=== PATIENT | female | born 1955 | race Caucasian/White ===

== ENCOUNTER 2025-03-21 09:11 | Outpatient (AMB) | payer MEDICARE, SELFPAY ==
--- OUTSIDE RECORDS SUMMARY | 2025-03-21 09:14 | XMS_ITS | Clinical Summary ---
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 Active losartan-hydroCH LOROthiazide (HYZAAR) 100-25 mg per tablet Take 1 tablet by mouth 1 (one) time each day. Active Surgical History Surgery Date Site/Laterality Comments COLONOSCOPY HYSTERECTOMY TUBAL LIGATION APPENDECTOMY Medical History Medical History Date Comments Hyperlipidemia Anemia Neuropathy Herpes Social History Tobacco Use Types Packs/Day Years Used Date Smoking Tobacco: Never Smokeless Tobacco: Never Tobacco Cessation:Counseling Given: Not Answered Alcohol Use Standard Drinks/Week Comments Yes 0 (1 standard drink = 0.6 oz pur e alcohol) Interpersonal Safety Answer Date Record ed Physical Abuse Unrecognized value 04/10/2024 Verbal Abuse Unrecognized value 04/10/2024 Comments Unknown Sex and Gender Information Value Date Recorded Sex Assigned at Female 04/07/2024 5:11 PM EST Legal Sex Female 5:52 AM EST Gender Identity Female 04/07/2024 5:11 PM EST Sexual Orientation Straight 04/07/2024 5: 11 PM EST Last Filed Vital Signs Vital Sign Reading Time Taken Comments Blood Pressure 128/75 04/10/2024 11:17 AM EST Pulse 67 04/10/2024 11:17 AM EST Temperature 36.2 C (97.2 F) 04/10/2024 10:57 AM EST Respiratory Rate 17 04/10/2024 11:17 AM EST Oxygen Saturation 97% 04/10/2024 11:17 AM EST Inhaled Oxygen Concentration - - Weight 79.4 kg (175 lb) 03/31/2024 1:00 PM EST Height 167.6 cm (5' 6 ) 03/31/2024 1:00 PM EST Body Mass Index 28.25 03/31/2024 1:00 PM EST Plan of Treatment Health Maintenance Due Date Last Done Comments Zoster Vaccines (2 of 3) 03/29/2015 02/01/2015 Breast Cancer Screening 09/15/2020 09/15/2018, 09/09 Pneumococcal Vaccine: 50+ Years (2 of 2 - PCV20 or PCV21) 02/19/2021 02/20/2020 Cholesterol Screening (Lipid Panel) 01/12/2024 Hepatitis C Screening 01/12/2024 Medicare Annual Wellness Visit 01/12/2024 Osteoporosis Screening (Bone Density Screening) 01/12/2024 Social Influencers of Health Screening 01/12/2024 Depression Screening 03/29/2024 Hypertension/CHF/CAD Annual BMP Blood Test 04/10/2024 COVID-19 Vaccine ( - season) 2024 Influenza Vaccine (#1) 2024 9, 02/01/2015, 12/21/2013, Additional history exists Falls Risk Assessment 04/10/2025 04/10/2024 RSV Immunization Adult Patients (1 - 1-dose 75+ series) 2029 DTaP,Tdap,and Td Vaccines (4 - Td or Tdap) 02/24/2032 02/23/2022, 05/09/2012, 01/20/2005 Colorectal Cancer Screening: Colonoscopy 04/10/2034 04/10/2024 HIB Vaccines Aged Out No longer eligi ble based on patient's age to complete this topic HPV Vaccines Aged Out No longer eligi ble based on patient's age to complete this topic Hepatitis A Vaccines Aged Out No long er eligible based on patient's age to complete this topic Hepatitis B Vaccines Aged Out No long er eligible based on patient's age to complete this topic IPV Vaccines Aged Out No longer eligi ble based on patient's age to complete this topic MMR Vaccines Aged Out No longer eligi ble based on patient's age to complete this topic Meningococcal ACWY Vaccine Aged Out N o longer eligible based on patient's age to complete this topic Meningococcal B Vaccine Aged Out No l onger eligible based on patient's age to complete this topic RSV Immunization Patients Under 20 months Aged Out No longer eligible based on patient's age to complete this topic Varicella Vaccines Aged Out No longer eligible based on patient's age to complete this topic Procedures Procedure Name Priority Date/Time Associated Diagnosis Comments COLONOSCOPY Routine 04/10/2024 10:56 AM EST Hx of colonic polyps Family history of polyps in the colon FH: colon cancer [facility] SCREENING DIGITAL Routine 09/15/2018 9:45 AM EDT Encounter for screening mammogram for malignant neoplasm of breast from Last 3 Months or Most Recently Relevant to Health Maintenance Results * COLONOSCOPY Anesthesia - MAC; SP ENDOSCOPY (04/10/2024 10:56 AM EST) Anatomical Region Laterality Modality Endoscopy 04/10/2024 10:3 0 AM EST Impressions 04/10/2024 10:59 AM EST - Hemorrhoids found on perianal exam. - The examined portion of the ileum was normal. - Diverticulosis in the sigmoid colon. - Post-polypectomy scar in the rectum. - Internal hemorrhoids. Recommendation: - Await pathology results. - Repeat colonoscopy for surveillance based on pathology results. Narrative 04/10/2024 10:[address] [facility] GI Patient Name: Kay Spencer Procedure Date: 04/10/2024 10:30 AM Date of : 1955 Age: 68 Gender: Female Note Status: Finalized Attending MD: Misty Stanley MD, Procedure Date No Time: 04/10/2024 Procedure: Colonoscopy Indications: High risk colon cancer surveillance: Personal history of adenoma (10 mm or greater in size) Providers: Misty Stanley MD Referring MD: Brian Martínez MD Medicines: Propofol per Anesthesia Complications: No immediate complications. Estimated Blood Loss: Estimated blood loss: none. Procedure: Pre-Anesthesia Assessment: - ASA Grade Assessment: II - A patient with mild systemic disease. After I obtained informed consent, the scope was passed under direct vision. Throughout the procedure, the patient's blood pressure, pulse, and oxygen saturations were monitored continuously.The Colonoscope was introduced through the anus and advanced to the terminal ileum. The colonoscopy was performed without difficulty. The patient tolerated the procedure well. The quality of the bowel preparation was excellent. Findings: Hemorrhoids were found on perianal exam. The terminal ileum appeared normal. Multiple small-mouthed diverticula were found in the sigmoid colon. A medium post polypectomy scar was found in the rectum. There was residual polyp tissue. The polyp was removed with a hot snare. Resection and retrieval were complete. Internal hemorrhoids were found during retroflexion. The hemorrhoids were Grade I (internal hemorrhoids that do not prolapse). Procedure Code(s): --- Professional --- 55376, Colonoscopy, flexible; with removal of tumor(s), polyp(s), or other lesion(s) by snare technique Diagnosis Code(s): --- Professional --- Z86.010, Personal history of colonic polyps Z98.890, Other specified postprocedural states CPT copyright 2021 [employer]. All rights reserved. The codes documented in this report are preliminary and upon system consultant review may be revised to meet current compliance requirements. Misty Stanley MD 04/10/2024 10:59:00 AM This report has been signed electronically.Misty Stanley MD Number of Addenda: 0 Note Initiated On: 04/10/2024 10:30 AM Scope In: Scope Out: Endoscopy Department at [facility] - [address] [place] [id number] Procedure Note Misty Stanley MD - 04/10/2024 [facility] GI Patient Name: Kay Spencer Procedure Date: 04/10/2024 10:30 AM Date of : 1955 Age: 68 Gender: Female Note Status: Finalized Attending MD: Misty Stanley MD, Procedure Date No Time: 04/10/2024 Procedure: Colonoscopy Indications: High risk colon cancer surveillance: Personalhistory of adenoma (10 mm or greater in size) Providers: Misty Stanley MD Referring MD: Brian Martínez MD Medicines: Propofol per Anesthesia Complications: No immediate complications. Estimated Blood Loss: Estimated blood loss: none. Procedure: Pre-Anesthesia Assessment: - ASA Grade Assessment: II - A patient with mild systemic disease. After I obtained informed consent, the scope was passed under direct vision. Throughout theprocedure, the patient's blood pressure, pulse, and oxygen saturations were monitored continuously.The Colonoscope was introduced through the anus and advanced to the terminal ileum. The colonoscopy was performed without difficulty. The patient tolerated the procedure well. The quality of the bowel preparation was excellent. Findings: Hemorrhoids were found on perianal exam. The terminal ileum appeared normal. Multiple small-mouthed diverticula were found inthe sigmoid colon. A medium post polypectomy scar was found in the rectum. There was residual polyp tissue. The polypwas removed with a hot snare. Resection and retrievalwere complete. Internal hemorrhoids were found duringretroflexion. The hemorrhoids were Grade I (internal hemorrhoids that do not prolapse). Procedure Code(s): --- Professional --- 30373, Colonoscopy, flexible; with removal of tumor(s), polyp(s), or other lesion(s) by snare technique Diagnosis Code(s): --- Professional --- Z86.010, Personal history of colonic polyps Z98.890, Other specified postprocedural states CPT copyright 2020 [employer]. All rights reserved. The codes documented in this report are preliminary and upon system consultant reviewmay be revised to meet current compliance requirements. Misty Stanley MD 04/10/2024 10:59:00 AM This report has been signed electronically.Misty Stanley MD Number of Addenda: 0 Note Initiated On: 04/10/2024 10:30 AM Scope In: Scope Out: Endoscopy Department at [facility] - [address] [place] [id number] IMPRESSION: - Hemorrhoids found on perianal exam. - The examined portion of the ileum was normal. - Diverticulosis in the sigmoid colon. - Post-polypectomy scar in the rectum. - Internal hemorrhoids. Recommendation: - Await pathology results. - Repeat colonoscopy for surveillance based on pathology results. us Misty Stanley MD GI~PROCEDURE ORDERABLES Final Result * [facility] SCREENING DIGITAL (09/15/2018 9:45 AM EDT) Anatomical Region Laterality Modality Mammography 09/15/2018 8:17 AM EDT Narrative 09/15/2018 9:45 AM EDT [facility] Diagnostic Imaging Department [address] [place], [place] [id number] Patient: TJKAY /Age/Sex: 1955 - 63 - F Unit#: [id number] Location/Status: [facility] CLI Mnemonic/Ordering Site: [facility] Ordering Physician: BRIAN MARTÍNEZ MD [facility] Screening Digital - 09/15/18 - 0835 INDICATION: SCREENING COMPARISON: [facility] mammograms dating back to 09/09/2017 and additional outside exams of 12/04/2015, 11/19/2014 and 11/16/2013 TECHNIQUE: CC and MLO views of the breasts were obtained, using full field digital mammography with 3D tomosynthesis views in the MLO projection. Computer aided detection with the [employer] 7.2-H was employed. FINDINGS: The breasts contain heterogeneously dense tissues, which may lower sensitivity of mammography in this patient. No suspicious masses, suspicious microcalcifications, or areas of architectural distortion are identified. Benign-appearing breast calcifications are present bilaterally. There are no secondary signs of breast malignancy. Compared to the prior exam, no adverse interval change. IMPRESSION: No specific mammographic evidence of breast malignancy. Lack of an imaging correlate should not deter or delay biopsy of a clinically significant palpable finding. BI-RADS - Category 2 - Benign finding 3342F, 7025F Annual screening mammography is recommended. Patient entered into a reminder system with a target date for the next mammogram. [id number] / [id number]) , [id number] Dictating Physician: ZEINAB FARIA MD Electronically Signed by: ZEINAB FARIA MD Dic Date/Time: 09/15/1838 Sign date/Time: 09/15/1845 Procedure Note Zeinab Faria - 03/17/2022 [facility] Diagnostic Imaging Department [address] [place] [address] Patient: TJKAY D.O.B./Age/Sex: 1955 - 63 - F Unit#: [id number] Location/Status: [facility] CLI Mnemonic/Ordering Site: [facility] Ordering Physician: BRIAN MARTÍNEZ MD [facility] Screening Digital - 09/15/1835 INDICATION: SCREENING COMPARISON: [facility] mammograms dating back to 09/09/2017and additional outside exams of 12/04/2015, 11/19/2014 and 11/16/2013 TECHNIQUE: CC and MLO views of the breasts were obtained, using full field digital mammography with 3D tomosynthesis views in the MLO projection. Computer aided detection with the [employer] 7.2-H was employed. FINDINGS: The breasts contain heterogeneously dense tissues, which may lowersensitivity of mammography in this patient. No suspicious masses, suspicious microcalcifications, or areas ofarchitectural distortion are identified. Benign-appearing breast calcifications arepresent bilaterally. There are no secondary signs of breast malignancy. Comparedto the prior exam, no adverse interval change. IMPRESSION: No specific mammographic evidence of breast malignancy. Lack of an imaging correlate should not deter or delay biopsy of aclinically significant palpable finding. BI-RADS - Category 2 - Benign finding 3342F, 7025F Annual screening mammography is recommended. Patient entered into a reminder system with a target date for the next mammogram. [id number]) , [id number] Dictating Physician: ZEINAB FARIA MD Electronically Signed by: ZEINAB FARIA MD Dic Date/Time: 09/15/1838 Sign date/Time: 09/15/1845 us Brian Martínez MD IMG BI PROCEDURES Final Res ult from Last 3 Months or Most Recently Relevant to Health Maintenance Insurance [employer] - [place] MEDIC[place] ADVANTAGE Care Teams Bottle Dealer Relationship Specialty Start Date End Date Brian Martínez MD PCP - General Internal Medicine 04/07/24
--- OUTSIDE RECORDS SUMMARY | 2025-03-21 09:14 | XMS_ITS | Continuity of Care Document ---
Author Organization [facility], Main Office Address [address] [place] [address] Care Team Providers Care Pleating Supervisor Name Role Phone BRIAN MARTÍNEZ Primary Care Provider SEPIDEH SANDERS Dispensary Clerk MUSA SCHNEIDER Political Science Research Assistant DANIA GAUTHIER Referring Provider [phone] VICKI FUNG Referring Provider Assessment No assessment recorded. Plan of Treatment Reminders Order Date Submit Date Provider Last Modified By Organization Details Last Modified Time Details Appointments [id number] 2025 01:45P M Brian rachel MD Not available Not available Not available Lab None recorded. Referral pain managemen t referral - Low back pain since August 2024. Evaluate for possible cortisone injection . 2024 025 GHULAM Hobbs MD, [address], [place], [address], 03/01/2025 09:50:35 Procedures None recorded. Surgeries None recorded. Imaging None recorded. Medication Orders tramadol 50 mg tablet 2024 025 [id number], [address] [place], [address], 03/16/2025 05:01:59 Patient TargetsNo targets recorded. Patient Instructions Encounter Date Encounter Id Patient Instructions Last Modified By Organization Details Last Modified Time 02/27/2025 [id number] back care and preventing injuries: care instructions noah Not available 02/27/2025 16:18:53 getting back to normal after low back pain: care instructions noah Not available 02/27/2025 16:18:53 learning about relief for back pain noah Not available 02/27/2025 16:18:53 Reason for Referral Pain Management Referral for Low back pain Low back pain since August 2024. Evaluate for possible cortisone injection. Referring Physician: Brian Martínez, Family Medicine, Encounter Date: 02/27/2025 Problems Name Problem SNOMED Code Status Onset Date Resolution Date Notes Provider Name and Address Organization Details Recorded Time Pain of joint 21729538 Active hands Bernadette yeager [facility] 1 11:52:17 Influenz a-like illness 08576936 Completed 05/16/2014 Kristy Farooq PA-C [address], [place], [address] , [facility] 6 16:15:36 Venous varices 573602293 Active Bernadette yeager [facility] 1 11:52:17 Bhatti's metatars algia 18285464 Active surgery May [address] [facility] 1 11:52:17 Thyroid stimulat ing hormone level above referenc e range 050440760 Completed 05/22/2014 Kristy Farooq PA-C [address], [place], [address] , [facility] 6 16:15:36 Subclini malinda hypothyr oidism 50218878 Active Bernadette yeager 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 has been stable. Bernadette yeager [facility] 1 11:52:17 Acute sinusiti s 41040104 [facility] 09[facility] Upper respirat ory infectio n 66386695 Completed 01/10/[address] [facility] 8 09:32:59 Left lower quadrant pain 287558134 Completed 01/10/[address] [facility] 8 09:32:49 Divertic ulitis 390452977 Active Bernadette Willams shobha, [facility] 1 11:52:17 Injury of foot 465946984 Completed 01/10/[address] [facility] 8 09:32:45 Hyperten sive disorder 77078814 Completed 08/12/2020 Removal Reason: Vicenta Martínez MD [address], [place], [address] , [facility] 1 13:13:16 Peripher al venous insuffic iency 06305481 Active Bernadette Willams shobha, [facility] 1 11:52:17 Depressi ve disorder 98548147 Completed 08/12/2020 Removal Reason: Vicenta Martínez MD [address], [place], [address] , [facility] 1 13:13:38 Mixed anxiety and depressi ve disorder 332876710 Active Bernadette Willams shobha, [facility] 1 11:52:17 Hypercho lesterol emia 69812564 Completed 08/12/2020 Removal Reason: Vicenta Martínez MD [address], [place], [address] , [facility] 1 13:13:03 Anemia 926925505 Active Bernadette Willams shobha, [facility] 1 11:52:17 Single major depressi ve episode Active Bernadette Willams null, [facility] 1 11:52:17 Essentia l hyperten cecilia 44587833 Active Bernadette Willams null, [facility] 1 11:52:17 Pure hypercho lesterol emia 117320502 Completed 07/09/2016 Brian Martínez MD [address], [place], [address] , [facility] 7 11:02:54 Patient status finding 681296040 Completed 12/21/2013 Kristy Farooq PA-C [address], [place], [address] , [facility] 6 16:15:36 Otalgia 34310956 Active Bernadette Willams null, 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 1 11:52:17 Herpes simplex 15494100 Active in ear Bernadette Willams null, [facility] 1 11:52:17 Acute maxillar y sinusiti s 03891769 Completed 200711/02/2013 RESOLVED DATE: 07/13/19 08; IMPRESSI ON: PT C/O GI DISTRESS WITH TAKING AUGMENTI N WILL D/C AND CHANGE LAST WEEK TO AVELOX 400MG QD; RECORDED 07/13/19 08 8:07AM BY BRIAN RODRIGUEZ MD, ANNOTATI ON/ADDKULDIP Farooq PA-C [address], [place], [address] , [facility] 6 16:15:36 General examinat ion of patient Completed 200711/02/2013 RECORDED 07/13/19 08 8:08AM BY BRIAN RODRIGUEZ MD, ANNOTATI ON/ADDEN EMMA Farooq PA-C [address], [place], [address] , [facility] 6 16:15:36 Acute maxillar y sinusiti s 96264143 Completed 200711/03/2013 RESOLVED DATE: 07/13/19 08; IMPRESSI ON: PT C/O GI DISTRESS WITH TAKING AUGMENTI N WILL D/C AND CHANGE LAST WEEK TO AVELOX 400MG QD; RECORDED 07/13/19 08 8:07AM BY BRIAN RODRIGUEZ MD, ANNOTATI ON/ADDEN EMMA SOFIA-C [address], [place], [address] , [facility] 6 16:15:36 General examinat ion of patient Completed 200711/03/2013 RECORDED 07/13/19 08 8:08AM BY BRIAN RODRIGUEZ MD, ANNOTATI ON/EKATERINAEN EMMA SOFIA-C [address], [place], [address] , [facility] 6 16:15:36 Acute maxillar y sinusiti s 45803377 Completed 200710/10/2013 RESOLVED DATE: 07/13/19 08; IMPRESSI ON: PT C/O GI DISTRESS WITH TAKING AUGMENTI N WILL D/C AND CHANGE LAST WEEK TO AVELOX 400MG QD; RECORDED 07/13/19 08 8:07AM BY BRIAN RODRIGUEZ MD, ANNOTATI ON/TRISH SOFIA-C [address], [place], [address] , [facility] 6 16:15:36 General examinat ion of patient Completed 200710/10/2013 RECORDED 07/13/19 08 8:08AM BY BRIAN RODRIGUEZ MD, ANNOTATI ON/TRISH SOFIA-C [address], [place], [address] , [facility] 6 16:15:36 Degenera tion of interver tebral disc Completed 200711/02/2013 RECORDED 01/12/20 08 11:55AM BY SHILA WILSON ON/ADDEN DUM Kristy Farooq PA-C [address], [place], [address] , [facility] 6 16:15:37 Fracture of sternum 73654392 Completed 200711/02/2013 RECORDED 01/12/20 08 11:55AM BY CASS WILSONATI ON/ADDEN DUM Kristy Farooq PA-C [address], [place], [address] , [facility] 6 16:15:36 Closed fracture 071311831 Completed 200711/02/2013 RECORDED 01/12/20 08 11:55AM BY SHILA WILSON ON/ADDEN DUM Kristy Farooq PA-C [address], [place], [address] , [facility] 6 16:15:36 Palpitat ions 29368594 Completed 200711/02/2013 RECORDED 01/12/20 08 11:55AM BY SHILA WILSON ON/ADDEN DUM Kristy Farooq PA-C [address], [place], [address] , [facility] 6 16:15:36 Degenera tion of interver tebral disc Completed 200711/03/2013 RECORDED 01/12/20 08 11:55AM BY SHILA WILSON ON/ADDEN DUM Kristy Farooq PA-C [address], [place], [address] , [facility] 6 16:15:37 Fracture of sternum 26931971 Completed 200711/03/2013 RECORDED 01/12/20 08 11:55AM BY SHILA WILSON ON/ADDEN DUM Kristy Farooq PA-C [address], [place], [address] , [facility] 6 16:15:36 Closed fracture 901257519 Completed 200711/03/2013 RECORDED 01/12/20 08 11:55AM BY SHILA WILSON ON/ADDEN DUM Kristy Oseas PA-C [address], [place], [address] , [facility] 6 16:15:36 Palpitat ions 96964902 Completed 200711/03/2013 RECORDED 01/12/20 08 11:55AM BY SHILA WILSON ON/ADDEN DUM Kristy Oseas SOFIA-C [address], [place], [address] , [facility] 6 16:15:36 Degenera tion of interver tebral disc Completed 200710/10/2013 RECORDED 01/12/20 08 11:55AM BY SHILA WILSON ON/ADDEN DUM Kristy Oseas PA-C [address], [place], [address] , [facility] 6 16:15:37 Fracture of sternum 39730919 Completed 200710/10/2013 RECORDED 01/12/20 08 11:55AM BY SHILA WILSON ON/ADDEN DUM Kristy Oseas SOFIA-C [address], [place], [address] , [facility] 6 16:15:36 Closed fracture 297137776 Completed 200710/10/2013 RECORDED 01/12/20 08 11:55AM BY SHILA WILSON ON/ADDEN DUM Kristy Oseas PA-C [address], [place], [address] , [facility] 6 16:15:36 Palpitat ions 92638913 Completed 200710/10/2013 RECORDED 01/12/20 08 11:55AM BY IESHA DAWN, ANNOTATI ON/[facility] [address], [place], [address] , [facility] 6 16:15:36 Acute bronchit is 24197098 Completed 200811/02/2013 IMPRESSI ON: COUGH WITH GREEN SPUTUM, NO SOB, NL LUNG EXAM, TREAT WITH ZPAK, PT TOLERATE D CODEINE RECENTLY THEREFOR E WOULD LIKE THE COUGH MED WITH CODEINE; RECORDED 12/18/19 09 11:28AM BY SHAKEEL VALLE MA, ANNOTATI ON/[facility] Kristypura Delucaden CA-C [address] [address], [place], [address] , [facility] 6 16:15:36 Dysphagi a 15855622 Completed 200811/02/2013 IMPRESSI ON: SORE THROAT , NEG QUICK STREP; RECORDED 12/18/19 09 11:28AM BY SHAKEEL VALLE MA, ANNOTBERTHA ON/[facility] [address], [place], [address] , [facility] 6 16:15:36 Acute bronchit is 24818193 Completed 200811/03/2013 IMPRESSI ON: COUGH WITH GREEN SPUTUM, NO SOB, NL LUNG EXAM, TREAT WITH ZPAK, PT TOLERATE D CODEINE RECENTLY THEREFOR E WOULD LIKE THE COUGH MED WITH CODEINE; RECORDED 12/18/19 09 11:28AM BY SHAKEEL VALLE MA, ANNOTATI ON/[facility] [address], [place], [address] , [facility] 6 16:15:36 Dysphagi a 91944301 Completed 200811/03/2013 IMPRESSI ON: SORE THROAT , NEG QUICK STREP; RECORDED 12/18/19 09 11:28AM BY SHAKEEL VALLE MA, ANNOTATI ON/ADDEN DUM Kristy SOFIA-C [address], [place], [address] , [facility] 6 16:15:36 Acute bronchit is 95564003 Completed 200810/10/2013 IMPRESSI ON: COUGH WITH GREEN SPUTUM, NO SOB, NL LUNG EXAM, TREAT WITH ZPAK, PT TOLERATE D CODEINE RECENTLY THEREFOR E WOULD LIKE THE COUGH MED WITH CODEINE; RECORDED 12/18/19 09 11:28AM BY SHAKEEL VALLE MA, ANNOTATI ON/ADDEN DUM Kristy SOFIA-C [address], [place], [address] , [facility] 6 16:15:36 Dysphagi a 11687443 Completed 200810/10/2013 IMPRESSI ON: SORE THROAT , NEG QUICK STREP; RECORDED 12/18/19 09 11:28AM BY SHAKEEL VALLE MA, ANNOTATI ON/ADDEN DUM Kristy TURNERC [address], [place], [address] , [facility] 6 16:15:36 Acute sinusiti s 68730856 Completed 201111/02/2013 RECORDED 11/12/19 12 10:28AM BY OSWALDO PEREA MA, ANNOTATI ON/ADDEN DUM [facility] 8 09:32:35 Acute asthma 678529400 Completed 201111/02/2013 RECORDED 11/12/19 12 10:28AM BY OSWALDO PEREA MA, ANNOTATI ON/ADDEN DUM Kristykamaljit TURNERC [address], [place], [address] , [facility] 6 16:15:36 Screenin g for malignan t neoplasm of breast Completed 201111/02/2013 RECORDED 11/12/19 12 10:28AM BY OSWALDO PEREA MA, ANNOTATI ON/ADDEN DUM Kristy Farooq PA-C [address], [place], [address] , [facility] 6 16:15:36 Screenin g for malignan t neoplasm of cervix Completed 201111/02/2013 RECORDED 11/12/19 12 10:28AM BY OSWALDO PEREA MA, ANNOTATI ON/ADDEN DUM Kristy Farooq PA-C [address], [place], [address] , [facility] 6 16:15:36 Chest pain 40678356 Completed 201111/02/2013 RECORDED 11/12/19 12 10:31AM BY SHILA ANTHONY ON/ADDEN DUM Kristy Farooq PA-C [address], [place], [address] , [facility] 6 16:15:36 Conjunct ivitis 9626815 Completed 201111/02/2013 RECORDED 11/12/19 12 10:31AM BY SHILA ANTHONY ON/ADDEN DUM Kristy Farooq PA-C [address], [place], [address] , [facility] 6 16:15:36 Gastroes ophageal reflux disease 828173481 Completed 201111/02/2013 RECORDED 11/12/19 12 10:31AM BY SHILA ANTHONY ON/ADDEN DUM Kristy Farooq PA-C [address], [place], [address] , [facility] 6 16:15:36 Family history of malignan t neoplasm of ovary 016913620 Completed 201111/02/2013 RECORDED 11/12/19 12 10:31AM BY DEMOND SCHULTZK I, ANNOTATI ON/ADDEN DUM Kristy Farooq PA-C [address], [place], [address] , [facility] 6 16:15:36 Follow-u p encounte r Completed 201111/02/2013 RECORDED 11/12/19 12 10:31AM BY DEMOND PETERSON I, ANNOTATI ON/ADDEN DUM Kristy Farooq PA-C [address], [place], [address] , [facility] 6 16:15:36 Disorder of bone and articula r cartilag e 341006231 Completed 201111/02/2013 RECORDED 11/12/19 12 10:31AM BY DEMOND PETERSON I ANNOTATI ON/ADDEN DUM Kristy Farooq PA-C [address], [place], [address] , [facility] 6 16:15:36 Screenin g for malignan t neoplasm of colon Completed 201111/02/2013 RECORDED 11/12/19 12 10:31AM BY CASS ANTHONYATI ON/ADDEN DUM Kristy Farooq PA-C [address], [place], [address] , [facility] 6 16:15:37 Acute sinusiti s 91757235 Completed 201111/03/2013 RECORDED 11/12/19 12 10:28AM BY OSWALDO PEREA MA, ANNOTATI ON/ADDEN DUM Demond [facility] 8 09:32:35 Acute asthma 970348305 Completed 201111/03/2013 RECORDED 11/12/19 12 10:28AM BY OSWALDO PEREA MA, ANNOTATI ON/ADDEN DUM Kristy Farooq PA-C [address], [place], [address] , [facility] 6 16:15:36 Screenin g for malignan t neoplasm of breast Completed 201111/03/2013 RECORDED 11/12/19 12 10:28AM BY OSWALDO PEREA MA, ANNOTATI ON/ADDEN DUM Kristy Farooq PA-C [address], [place], [address] , [facility] 6 16:15:36 Screenin g for malignan t neoplasm of cervix Completed 201111/03/2013 RECORDED 11/12/19 12 10:28AM BY OSWALDO PEREA MA, ANNOTATI ON/ADDEN DUM Kristy Farooq PA-C [address], [place], [address] , [facility] 6 16:15:37 Chest pain 55539720 Completed 201111/03/2013 RECORDED 11/12/19 12 10:31AM BY SHILA ANTHONY ON/ADDEN DUM Kristy Farooq PA-C [address], [place], [address] , [facility] 6 16:15:36 Conjunct ivitis 6169032 Completed 201111/03/2013 RECORDED 11/12/19 12 10:31AM BY SHILA ANTHONY ON/ADDEN DUM Kristy Farooq PA-C [address], [place], [address] , [facility] 6 16:15:36 Gastroes ophageal reflux disease 675124417 Completed 201111/03/2013 RECORDED 11/12/19 12 10:31AM BY SHILA ANTHONY ON/ADDEN DUM Kristy Farooq PA-C [address], [place], [address] , [facility] 6 16:15:36 Family history of malignan t neoplasm of ovary 538195974 Completed 201111/03/2013 RECORDED 11/12/19 12 10:31AM BY CASS ANTHONYATI ON/ADDEN DUM Kristy Farooq PA-C [address], [place], [address] , [facility] 6 16:15:36 Follow-u p encounte r Completed 201111/03/2013 RECORDED 11/12/19 12 10:31AM BY CASS ANTHONYATI ON/ADDEN DUM Kristy Farooq PA-C [address], [place], [address] , [facility] 6 16:15:36 Disorder of bone and articula r cartilag e 971557644 Completed 201111/03/2013 RECORDED 11/12/19 12 10:31AM BY CASS ANTHONYATI ON/ADDEN DUM Kristy Farooq PA-C [address], [place], [address] , [facility] 6 16:15:36 Screenin g for malignan t neoplasm of colon Completed 201111/03/2013 RECORDED 11/12/19 12 10:31AM BY CASS ANTHONYATI ON/ADDEN DUM Kristy Farooq PA-C [address], [place], [address] , [facility] 6 16:15:37 Acute sinusiti s 01340873 Completed 201110/10/2013 RECORDED 11/12/19 12 10:28AM BY OSWALDO PEREA MA, ANNOTATI ON/ADDEN DUM Demond [facility] 8 09:32:35 Acute asthma 172502221 Completed 201110/10/2013 RECORDED 11/12/19 12 10:28AM BY OSWALDO PEREA MA, ANNOTATI ON/ADDEN DUM Kristy Farooq PA-C [address], [place], [address] , [facility] 6 16:15:36 Screenin g for malignan t neoplasm of breast Completed 201110/10/2013 RECORDED 11/12/19 12 10:28AM BY OSWALDO PEREA MA, ANNOTATI ON/ADDEN DUM Kristy Farooq PA-C [address], [place], [address] , [facility] 6 16:15:36 Screenin g for malignan t neoplasm of cervix Completed 201110/10/2013 RECORDED 11/12/19 12 10:28AM BY OSWALDO PEREA MA, ANNOTATI ON/ADDEN DUM Kristy Farooq PA-C [address], [place], [address] , [facility] 6 16:15:36 Chest pain 04159550 Completed 201110/10/2013 RECORDED 11/12/19 12 10:31AM BY SHILA ANTHONY ON/ADDEN DUM Kristy Farooq PA-C [address], [place], [address] , [facility] 6 16:15:36 Conjunct ivitis 9609895 Completed 201110/10/2013 RECORDED 11/12/19 12 10:31AM BY SHILA ANTHONY ON/ADDEN DUM Kristy Farooq PA-C [address], [place], [address] , [facility] 6 16:15:36 Gastroes ophageal reflux disease 555431302 Completed 201110/10/2013 RECORDED 11/12/19 12 10:31AM BY CASS ANTHONYATI ON/ADDEN DUM Kristy Farooq PA-C [address], [place], [address] , [facility] 6 16:15:36 Family history of malignan t neoplasm of ovary 378896038 Completed 201110/10/2013 RECORDED 11/12/19 12 10:31AM BY CASS ANTHONYATI ON/ADDEN DUM Kristy Farooq PA-C [address], [place], [address] , [facility] 6 16:15:36 Follow-u p encounte r Completed 201110/10/2013 RECORDED 11/12/19 12 10:28AM BY OSWALDO PEREA MA, ANNOTATI ON/ADDEN DUM Kristy [employer] PA-C [address], [place], [address] , [facility] 6 16:15:36 Essentia l hyperten cecilia 27716516 Completed 201110/10/2013 RECORDED 11/12/19 12 10:28AM BY OSWALDO PEREA MA, ANNOTATI ON/ADDEN DUM Kristy [employer] PA-C [address], [place], [address] , [facility] 6 16:15:36 Disorder of bone and articula r cartilag e 018582977 Completed 201110/10/2013 RECORDED 11/12/19 12 10:31AM BY SHILA ANTHONY ON/ADDEN DUM Kristy [employer] PA-C [address], [place], [address] , [facility] 6 16:15:36 Screenin g for malignan t neoplasm of colon Completed 201110/10/2013 RECORDED 11/12/19 12 10:31AM BY SHILA ANTHONY ON/ADDEN DUM Kristy [employer] PA-C [address], [place], [address] , [facility] 6 16:15:37 Influenz a vaccine needed [id number] 06 Completed 201211/02/2013 RECORDED 12/13/19 13 1:11PM BY DEMOND PETERSON I, OFFICE VISIT Kristy TURNERC [address], [place], [address] , [facility] 6 16:15:36 Administ ration of diphther ia and tetanus vaccine Completed 201211/02/2013 RECORDED 12/13/19 13 12:59PM BY DEMOND PEETRSON I, ANNOTATI ON/ADDEN DUM Kristy SOFIA-C [address], [place], [address] , [facility] 6 16:15:36 Influenz a vaccine needed [id number] 06 Completed 201211/03/2013 RECORDED 12/13/19 13 1:11PM BY DEMOND PETERSON I, OFFICE VISIT Kristy SOFIA-C [address], [place], [address] , [facility] 6 16:15:36 Administ ration of diphther ia and tetanus vaccine Completed 201211/03/2013 RECORDED 12/13/19 13 12:59PM BY CASS ANTHONYATI ON/ADDEN DUM Kristy SOFIA-C [address], [place], [address] , [facility] 6 16:15:36 Influenz a vaccine needed [id number] 06 Completed 201210/10/2013 RECORDED 12/13/19 13 1:11PM BY DEMOND PETERSON I, OFFICE VISIT Kristy TURNERC [address], [place], [address] , [facility] 6 16:15:36 Administ ration of diphther ia and tetanus vaccine Completed 201210/10/2013 RECORDED 12/13/19 13 12:59PM BY DEMOND PETERSON I, ANNOTATI ON/ADDEN DUM Kristy SOFIA-C [address], [place], [address] , [facility] 6 16:15:36 Pain in limb 30583113 Completed 201211/02/2013 RECORDED 01/21/20 13 9:39AM BY OSWALDO PEREA MA, ANNOTATI ON/ADDEN DUM Kristy Farooq PA-C [address], [place], [address] , [facility] 6 16:15:36 Adult health examinat ion Completed 201211/02/2013 RECORDED 01/21/20 13 9:39AM BY OSWALDO PEREA MA, ANNOTATI ON/ADDEN DUM Kristy Farooq PA-C [address], [place], [address] , [facility] 6 16:15:36 Pain in limb 01403825 Completed 201211/03/2013 RECORDED 01/21/20 13 9:39AM BY OSWALDO PEREA MA, ANNOTATI ON/ADDEN DUM Kristy Farooq PA-C [address], [place], [address] , [facility] 6 16:15:36 Adult health examinat ion Completed 201211/03/2013 RECORDED 01/21/20 13 9:39AM BY OSWALDO PEREA MA, ANNOTATI ON/ADDEN DUM Kristy Farooq PA-C [address], [place], [address] , [facility] 6 16:15:36 Pain in limb [id number] Completed 201210/10/2013 RECORDED 01/21/20 13 9:39AM BY OSWALDO PEREA MA, ANNOTATI ON/ADDEN DUM Kristy Farooq PA-C [address], [place], [address] , [facility] 6 16:15:36 Adult health examinat ion Completed 201210/10/2013 RECORDED 01/21/20 13 9:39AM BY OSWALDO PEREA MA, SHILA ON/TRISH Farooq PA-C [address], [place], [address] , [facility] 6 16:15:36 Foot pain [id number] Completed 201305/16/[address] Gilson Farooq PA-C [address], [place], [address] , [facility] 6 16:15:36 Herpes simplex [id number] Completed 201311/02/2013 IMPRESSI ON: SEE LAST 2 OV NOTES. 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 SURPRISI NG RESULT. SUSPECTE D HERPES ZOSTER. SHE HAS NO HX COLD SORES. SHE HAD PARIETAL HEAD PAIN, DIZZINES , HYPERACU SIS ASSOCIAT ED WITH THIS. MOST SXS IMPROVED . TO ID TO FIND OUT IF SHE SHOULD EXPECT RECURREN JOLIE IN THE SAME DISTRIBU TION; RECORDED 06/20/19 14 8:30AM BY SHILA ANTHONY ON/TRISH Farooq PA-C [address], [place], [address] , [facility] 6 16:15:36 Herpes zoster [id number] Completed 201311/02/2013 IMPRESSI ON: GABRIELA DURANT; STILL WITH EAR PAIN BUT IMPROVIN G AND NO HEARING LOSS. SHE WILL CALL IN 2 WEEKS IF THE EAR PAIN PERSISTS OR THERE IS ANY CHANGE IN HER HEARING OR BALANCE. ; RECORDED 06/20/19 14 8:30AM BY SHILA ANTHONY ON/TRISH Farooq PA-C [address], [place], [address] , [facility] 6 16:15:36 Herpes simplex [id number] Completed 201311/03/2013 IMPRESSI ON: SEE LAST 2 OV NOTES. 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 SURPRISI NG RESULT. SUSPECTE D HERPES ZOSTER. SHE HAS NO HX COLD SORES. SHE HAD PARIETAL HEAD PAIN, DIZZINES , HYPERACU SIS ASSOCIAT ED WITH THIS. MOST SXS IMPROVED . TO ID TO FIND OUT IF SHE SHOULD EXPECT RECURREN JOLIE IN THE SAME DISTRIBU TION; RECORDED 06/20/19 14 8:30AM BY SHILA ANTHONY ON/ADDKULDIP CARTER [employer]y [employer] [facility] [address], [place], [address] , [facility] 6 16:15:36 Herpes zoster [id number] Completed 201311/03/2013 IMPRESSI ON: OCHOA DURANT; STILL WITH EAR PAIN BUT IMPROVIN G AND NO HEARING LOSS. SHE WILL CALL IN 2 WEEKS IF THE EAR PAIN PERSISTS OR THERE IS ANY CHANGE IN HER HEARING OR BALANCE. ; RECORDED 06/20/19 14 8:30AM BY SHILA ANTHONY ON/ADDKULDIP [facility] Farooq CA-C [address], [place], [address] , [facility] 6 16:15:36 Herpes simplex [id number] Completed 201310/10/2013 IMPRESSI ON: SEE LAST 2 OV NOTES. 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 SURPRISI NG RESULT. SUSPECTE D HERPES ZOSTER. SHE HAS NO HX COLD SORES. SHE HAD PARIETAL HEAD PAIN, DIZZINES , HYPERACU SIS ASSOCIAT ED WITH THIS. MOST SXS IMPROVED . TO ID TO FIND OUT IF SHE SHOULD EXPECT RECURREN JOLIE IN THE SAME DISTRIBU TION; RECORDED 06/20/19 14 8:30AM BY SHILA ANTHONY ON/ADDKULDIP CARTER [employer] [address], [place], [address] , [facility] 6 16:15:36 Herpes zoster [id number] Completed 201310/10/2013 IMPRESSI ON: OCHOA DURANT; STILL WITH EAR PAIN BUT IMPROVIN G AND NO HEARING LOSS. SHE WILL CALL IN 2 WEEKS IF THE EAR PAIN PERSISTS OR THERE IS ANY CHANGE IN HER HEARING OR BALANCE. ; RECORDED 06/20/19 14 8:30AM BY SHILA ANTHONY ON/ADDKULDIP Farooq PA-C [address], [place], [address] , [facility] 6 16:15:36 Osteopen ia [id number] Active [address] Cindy Farooq PA-C [address], [place], [address] , [facility] 6 16:15:36 Blood in urine 67669382 Active 2015 Followed by urology Bernadette yeager, [facility] 1 11:52:17 Hyperlip idemia 69440460 Active 2016 Bernadette yeager, [facility] 1 11:52:17 Uterine prolapse 81618104 Active 2016 Brian Martínez MD [address], [place], [address] , [facility] 7 20:06:34 Vitamin D deficien cy 46027654 [facility] 11:[facility]17 Urinary incontin ence 172507481 Active [address] [facility] 1 11:52:17 Neuropat hy 225214254 Active 2018 LE; followed by neurolog yMartha yeager [facility] 1 11:52:17 Obesity 503988037 Active [address] [facility] 1 11:52:17 Pain in left knee Active 2019 Seen at [facility]; possible meniscus tear; getting an MRI.Tear on MRI. Getting another injectio n and if not helpful consider ing arthrosc opic surgery. Note from October 2022 document s good affect from injectio n which will be repeated . Brian Martínez MD [address], [place], [address] , [facility] 3 10:09:04 Hyperten cecilia monitori ng status 952531873 Active 2021 disenrol led Rose Antony yeager, 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 Seen by rheum and w/u in progress . Since symptoms have resolved may not be signific ant. 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 Extensiv e w/u r/o CVA and Guillian [place] Involvin g CN 6 and 5. Probable [place] Palsy with adjacent nerve involvem ent Brian Martínez MD [address], [place], [address] , [facility] 5 08:17:32 Problem Notes None recorded. Procedures Surgical History Date Name Laterality Status Provider Name and Address Organization Details Recorded Time 05/17/19 25 Most Recent Mammogram completed Brianda Perry [facility] 05/17/2024 11:58:51 05/17/19 25 Mammogram Screening completed Brianda Perry [facility] 05/17/2024 11:58:36 04/10/19 25 Date of Last Colonoscopy completed Brianda Perry [facility] 04/11/2024 13:30:00 04/10/19 25 Colonoscopy completed Ida Duncan [facility] 04/26/2024 09:46:00 05/26/19 24 Advanced Care Planning completed Brian Martínez MD [address], [place], [address], [facility] 05/26/2023 12:31:56 11/04/19 23 injection of knee completed Ida Duncan [facility] 11/09/2022 11:11:52 09/23/19 23 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 completed Ida Duncan [facility] 10/02/2022 10:36:27 02/14/20 20 Six-Item Cognitive Test completed Rosa M Alexandre MA [facility] 02/14/2020 13:55:14 08/03/19 18 Most Recent Bone Density completed Bernadette Willams [facility] 08/19/2017 15:09:48 08/03/19 18 Dxa bone density jarrod vrt fx completed Bernadette Willams [facility] 08/19/2017 15:09:43 07/01/19 18 Date of Last Pap Smear completed Gisele Otero [facility] 07/06/2017 16:37:05 10/16/19 17 Total hysterectomy completed Demond Patrick [facility] 01/07/2017 09:38:13 12/28/19 15 Stab phleb veins xtr 10-[address] [facility] 02/05/2015 13:46:22 11/29/19 15 Endovenous laser 1st vein completed Demond Patrick [facility] 11/30/2014 14:41:43 06/02/19 15 Other completed Brian Martínez MD [address], [address], [facility] 06/08/2014 14:25:40 Tubal Ligation completed Oswaldo Perea [facility] 05/16/2014 12:44:07 Orthopedic Surgery completed Brian Martínez MD [address], [address], [facility] 12/21/2013 09:45:22 Appendectomy completed Brian Martínez MD [address], [address], [facility] 12/21/2013 09:45:22 Hysterectomy completed Rosa M Alexandre MA [facility] 02/17/2021 14:26:01 Endometrial Ablation completed Yanna Desai MA [facility] 02/23/2022 09:58:31 Imaging Results None recorded. Procedure Notes None recorded. Medical Equipment None Reported. Allergies Allergen ID Allergen Name Allergen Category Reaction Reaction Severity Criticality Documentation Date Start Date Code Code System Note Provider Name and Address Organization Details Recorded Time 1400 codeine medicatio n rash Not available Not available 10/10/2013 2670 [facility] 2 09:58:29 34581 atorvasta tin medicatio n nausea severe Not available 06/20/2018 58162 RxNorm CINDY Redman, [facility] 2 09:58:29 17337 Product containin g angiotens in-conver ting enzyme inhibitor (product) medicatio n cough Not available low 11/24/2023 63200 009 SNOMED Brian rachel MD [address], [place], [address], [facility] 4 12:32:10 22759 amlodipin e medicatio n Not available Not available Not available 08/30/2024 81855 RxNorm low sodiu m and potas sium Brian rachel MD [address], [place], [address], [facility] 5 17:57:38 22830 Cynara preparati on food Not available Not available Not available 02/27/20252024 12385 0 RxNorm unrec ogniz ed react ion (text : GI Intol eranc e, code: 80109 5008) (from exter nal sourc e) Not Available keven - External Data Service - prod 5 11:22:59 87041 spinach extract food Not available Not available Not available 02/27/20252024 63384 76 RxNorm unrec ogniz ed react ion (text : GI Intol eranc e, code: 97843 5008) (from exter nal sourc e) Not Available keven - External Data Service - prod 11:22:59 97386 Substance with sulfonami de structure and antibacte rial mechanism of action (substanc e) medicatio n hives Not available high 02/27/20252024 49213 8003 SNOMED Not Available keven - External Data Service - prod 11:22:59 39391 kale extract food diarrhea Not available Not available 02/27/20252024 88256 96 RxNorm Not Available keven - External Data Service - prod 11:25:44 Medications Name Sig Start Date Stop Date Status Note LastModified by Organization Details LastModified Time celecoxib 200 mg capsule DAILY 10/05 completed RECORDED 10/16/19 07 11:05AM BY BRIAN RODRIGUEZ MD, MEDICATI ON AUTO-TIMOTHY CTIVATIO N; Not Available Not Available Not Available atorvasta tin 40 mg tablet Take 1 tablet every day by oral route. 09/21 completed Not Available Not Available Not Available butalbita l-acetami nophen-ca ffeine 50 mg-325 mg-40 mg capsule Take 1 capsule every 4 hours by oral route as needed. 09/21 completed Not Available Not Available Not Available acetamino phen 325 mg tablet PLEASE SEE ATTACHED FOR DETAILED DIRECTIO NS active Not Available Not Available No t Available lidocaine 4 % topical patch PLACE 2 PATCHES DAILY NEEDED active Not Available Not Available No t Available ciproflox acin 750 mg tablet Take 1 tablet every 12 hours by oral route for 10 days. active Not Available Not Available No t Available atenolol 100 mg tablet TAKE 1 TABLET BY MOUTH EVERY DAY 03/26 completed Not Available Not Available Not Available valacyclo vir 1 gram tablet active Not Available Not Available Not Available benazepri l 5 mg-hydroc hlorothia zide 6.25 mg tablet TAKE 1 TABLET BY MOUTH EVERY DAY 11/23 completed Not Available Not Available Not Available prednison e 20 mg tablet active Not Available Not Available Not Available lovastati n 40 mg tablet DAILY 04/09 completed RECORDED 04/09/19 12 5:33PM BY LIDA ADORNO, ANNOTATI ON/ADDEN DUM; Not Available Not Available Not Available sertralin e 100 mg tablet DAILY active Not Available Not Available Not Available benazepri l 20 mg-hydroc hlorothia zide 25 mg tablet TAKE 1 TABLET BY MOUTH EVERY DAY DIRECTED active Not Available Not Available No t Available moxifloxa lindsay 400 mg tablet QD 07/08 completed RECORDED 09/08/19 07 8:50AM BY JHON SIMS, MEDICATI ON AUTO-TIMOTHY CTIVATIO N; Not Available Not Available Not Available Zithromax Z-Sai 250 mg tablet QD 09/11 completed RECORDED 12/11/19 09 12:03PM BY IGOR Rachel MD, MEDICATI ON AUTO-TIMOTHY CTIVATIO N;2PO QD FOR 1 DAY, THEN 1 QD FOR 4 DAYS. Not Available Not Available Not Available naproxen 250 mg tablet Take 2 tablets as needed by oral route for 30 days. 08/11 completed Not Available Not Available Not Available gabapenti n 250 mg/5 mL oral solution TWICE DAILY PRN PAIN active Not Available Not Available No t Available metronida zole 500 mg tablet Take 1 tablet every 8 hours by oral route for 10 days. active Not Available Not Available No t Available amlodipin e 5 mg tablet TAKE 1 TABLET EVERY DAY BY MOUTH FOR 30 DAYS, FOR BLOOD PRESSURE . 06/01 completed increase d dose to 10 mg. Not Available Not Available Not Available simvastat in 80 mg tablet DAILY 09/30 completed RECORDED 10/01/19 11 8:31AM BY BRIAN RODRIGUEZ MD, ANNOTATI ON/ADDEN DUM; Not Available Not Available Not Available valacyclo vir 500 mg tablet DAILY active Not Available Not Available No t Available ciproflox acin 500 mg tablet TAKE 1 TABLET BY MOUTH EVERY 12 HOURS FOR 7 DAYS 05/26 completed Not Available Not Available Not Available sulfameth oxazole 800 mg-trimet hoprim 160 mg tablet TK 1 T PO Q 12 H FOR 7 DAYS 08/11 completed Not Available Not Available Not Available aspirin 81 mg tablet,de layed release Take 1 tablet every day by oral route. active Not Available Not Available No t Available tramadol 50 mg tablet Take 1 tablet every 6 hours by oral route for 10 days. 03/16 completed Not Available Not Available Not Available acyclovir 800 mg tablet active Not Available Not Available Not Available lidocaine -prilocai ne 2.5 %-2.5 % topical cream Apply by topical route for 30 days. 08/12 completed Not Available Not Available Not Available losartan 100 mg-hydroc hlorothia zide 25 mg tablet TAKE 1 TABLET BY MOUTH EVERY DAY FOR 90 DAYS FOR HIGH BLOOD PRESSURE 09/04 completed Not Available Not Available Not Available oxycodone -acetamin ophen 5 mg-325 mg tablet TAKE 1 TABLET BY MOUTH EVERY 4 TO 6 HOURS NEEDED FOR PAIN 03/09 completed Not Available Not Available Not Available Tessalon Perles 100 mg capsule Take 1 capsule 3 times a day by oral route as needed. active Not Available Not Available No t Available amoxicill in 875 mg tablet TWO TIMES DAILY 04/11 completed RECORDED 04/16/19 12 5:34PM BY BRIAN RODRIGUEZ MD, MEDICATI ON AUTO-TIMOTHY CTIVATIO N; Not Available Not Available Not Available Vitamin C 1,000 mg tablet Take 1 tablet twice a day by oral route. active Not Available Not Available No t Available Dostinex 0.5 mg tablet ONCE A WEEK 05/23 completed RECORDED 05/23/19 10 10:20AM BY BRIAN RODRIGUEZ MD, ANNOTATI ON/TRISH DUM; Not Available Not Available Not Available gentamici n 0.3 % eye drops QID 04/08 completed RECORDED 04/09/19 12 5:33PM BY BRIAN RODRIGUEZ MD, MEDICATI ON AUTO-TIMOTHY CTIVATIO N; Not Available Not Available Not Available amlodipin e 10 mg tablet TAKE 1 TABLET DAILY active Not Available Not Available No t Available pantopraz ole 40 mg tablet,de layed release Take 1 tablet every day by oral route. 09/21 completed Not Available Not Available Not Available prednison e 50 mg tablet DAILY 04/26 completed Not Available Not Available Not Available lidocaine 5 % topical patch DAILY active Not Available Not Available Not Available oxycodone 5 mg capsule 01/10 completed Not Available Not Available Not Available Advair Diskus 250 mcg-50 mcg/dose powder for inhalatio n Q 12 HR 06/24 completed RECORDED 06/25/19 07 3:19PM BY JHON SIMS, OFFICE VISIT; Not Available Not Available Not Available gabapenti n 300 mg capsule TAKE 1 CAPSULE BY MOUTH TWICE A DAY active Not Available Not Available No t Available oxycodone ER 10 mg tablet,ex tended release,1 2 hr EVERY TWELVE HOURS 12/13 completed RECORDED 12/14/19 08 4:06PM BY JHON SIMS, MEDICATI ON AUTO-TIMOTHY CTIVATIO N; Not Available Not Available Not Available gabapenti n 100 mg capsule NEEDED active RECORDED 08/01/19 14 6:37PM BY KIMBERLYN MAYES, ANNOTATI ON/ADDEN DUM; Not Available Not Available Not Available lorazepam 1 mg tablet active Not Available Not Available Not Available Nasonex 50 mcg/actua tion [place] QD 07/06 completed RECORDED 07/07/19 08 9:27PM BY CINDY SOLOMON, OFFICE VISIT; Not Available Not Available Not Available ibuprofen 600 mg tablet Take 1 tablet every 6-8 hours by oral route as needed for 10 days. 08/11 completed Not Available Not Available Not Available Cipro 250 mg tablet Take 1 tablet every 12 hours by oral route for 3 days. 10/13 completed Not Available Not Available Not Available Tussionex [place] ic ER 10 mg-8 mg/5 mL suspensio n,extende d release Take 5 mL every 12 hours by oral route as needed for cough for 12 days. 01/21 completed Not Available Not Available Not Available losartan 100 mg tablet TAKE 1 TABLET BY MOUTH EVERY DAY active Not Available Not Available No t Available fluticaso ne propionat e 50 mcg/actua tion nasal spray,malka pension Inhale 2 sprays every day by intranas al route for 30 days. active Not Available Not Available No t Available cholecalc iferol (vitamin D3) 10 mcg (400 unit) tablet Take 800 [iu]s by oral route. 02/17 completed Not Available Not Available Not Available doxycycli ne hyclate 100 mg tablet Take 1 tablet twice a day by oral route. 09/21 completed Not Available Not Available Not Available atenolol 50 mg tablet TAKE 1 TABLET BY MOUTH EVERY DAY 02/19 completed Not Available Not Available Not Available benazepri l 10 mg-hydroc hlorothia zide 12.5 mg tablet TAKE 1 TABLET EVERY DAY BY ORAL ROUTE DIRECTED FOR 90 DAYS, FOR HYPERTEN CECILIA 12/27 completed Not Available Not Available Not Available amoxicill in 875 mg-potass ium clavulana te 125 mg tablet Take 1 tablet every 12 hours by oral route for 10 days. active Not Available Not Available No t Available amoxicill in 500 mg-potass ium clavulana te 125 mg tablet active Not Available Not Available Not Available oxycodone 5 mg tablet 01/07 completed Not Available Not Available Not Available cholecalc iferol (vitamin D3) 25 mcg (1,000 unit) capsule Take 1 capsule every other day by oral route. active Not Available Not Available No t Available azithromy lindsay 500 mg tablet 04/26 completed Not Available Not Available Not Available codeine-g uaifenesi n oral syrup Q 6HRS PRN COUGH 05/23 completed RECORDED 05/23/19 10 10:20AM BY BRIAN RODRIGUEZ MD, SHILA ON/ADDEN DUM; Not Available Not Available Not Available Multivita min 50 Plus tablet Take 1 tablet every day by oral route. active Not Available Not Available No t Available nitrofura ntoin monohydra te/macroc rystals 100 mg capsule 04/26 completed Not Available Not Available Not Available pregabali n 50 mg capsule THREE TIMES DAILY, NEEDED 07/31 completed RECORDED 08/01/19 14 6:37PM BY KIMBERLYN MAYES, PHONE ENCOUNTE R; Not Available Not Available Not Available omeprazol e DAILY 09/20 completed RECORDED 09/21/19 13 2:41PM BY BRIAN RODRIGUEZ MD, ANNOTATI ON/ADDEN DUM; Not Available Not Available Not Available Vicodin ES EVERY FOUR HOURS, NEEDED FOR PAIN 01/27 completed RECORDED 02/01/20 13 11:29AM BY DEMOND PETERSON I, MEDICATI ON AUTO-TIMOTHY CTIVATIO N; Not Available Not Available Not Available Zostavax (PF) 19,400 unit/0.65 mL subcutane ous suspensio n active Not Available Not Available Not Available ProAir HFA 90 mcg/actua tion aerosol inhaler 01/11 completed Not Available Not Available Not Available GaviLyte- G 236 gram-22.7 4 gram-6.74 gram-5.86 gram oral solution TAKE 8 OUNCE BY MOUTH DIRECTED 05/31 completed Not Available Not Available Not Available Prevnar 13 (PF) 0.5 mL intramusc ular syringe ADM 0.5ML IM UTD 08/11 completed Not Available Not Available Not Available Vicodin ES 7.5 mg-300 mg tablet active Not Available Not Available Not Available Bone Essential s active Not Available Not Available Not Available Probiotic (B. coagulans ) 10 billion cell capsule,d elayed release Take 1 capsule every day by oral route. active Not Available Not Available No t Available Yuvafem 10 mcg vaginal tablet 07/08 completed Not Available Not Available Not Available Vitals Date Recorded Body height Body mass index (BMI) Body weight Heart rate Oxygen saturation Body temperature Systolic And Diastolic Systolic And Diastolic Provider Name and Address Organization Details Last Updated DateTime 5 165.74 cm 27.2 kg/m2 08903.7 4 g 81 /min 97 % 98 [degF] 149/83 mm[Hg] 148/80 mm[Hg] Faustina Morse MA [facility] 5 15:45:35 Social History Question Answer Notes LastModified by Organizat ion Details LastModified Time Tobacco Smoking Status Never Smoker Not Available [employer] 01/30/2020 03:36:36 Do You Have An Advance Directive? Yes Information not available 02/23/2022 Animal Exposure? Yes Informat ion not available 02/23/2022 Is Blood Transfusion Acceptable In An Emergency? Yes [id number] Information not available 01/30/2020 What Is Your Level Of Caffeine Consumption? Occasional [email or web address] Information not available 02/17/2021 How Much Tobacco Do You Chew? None Information not available 02/23/2022 In The 14 Days Before Symptom Onset, Have You Had Close Contact With A Laboratory-confi rmed COVID-19 While That Case Was Ill? No Information not available 02/23/2022 In The 14 Days Before Symptom Onset, Have You Had Close Contact With A Person Who Is Under Investigation For COVID-19 While That Person Was Ill? No Information not available 02/23/2022 Have You Been To An Area Known To Be High Risk For COVID-19? No Information not available 02/23/2022 What Type Of Diet Are You Following? GLUTENFREE [email or web address] Information not available 02/17/2021 Which Illicit Or Recreational Drugs Have You Used? None [id number] Information not available 01/30/2020 Legally Blind In One Or Both Eyes? No Information not available 02/23/2022 Live Alone Or With Others? With Others Information not available 02/23/2022 Do You Take Precautions To Prevent Distracted Driving? Yes [place] Leather Information not available 07/04/2015 How Often Do You Need To Have Someone Help You When You Read Instructions, Pamphlets, Or Other Written Material From Your Doctor Or Pharmacy? Never [place] Leather Information not available 07/04/2015 Have You Served In The ? No [place] Leather Information not available 01/07/2017 Have You Or Anyone In Your Household Had Any Of The Following Symptoms In The Last 14 Days: Sore Throat, Cough, Chills, Body Aches For Unknown Reasons, Shortness Of Breath For Unknown Reasons, Loss Of Smell, Loss Of Taste, Fever At Or Greater Than 100 Degrees Fahrenheit? No Information not available 11/17/2019 Are You Or Anyone In Your Household A Health Care Provider Or Emergency Responder? No [email or web address] Information not available 11/17/2019 To The Best Of Your Knowledge Have You Been In Close Proximity To Any Individual Who Tested Positive For COVID-19? No [email or web address] Information not available 11/17/2019 *AWV ONLY* Are You Presently Prescribed Opioid Medication By PCP Or Specialist? If YES -Provider Assess The Benefit For Other, Non-opioid Pain Therapies Instead, Even If The Patient Does Not Have OUD But Is Possibly At Risk. No [email or web address] Information not available 05/26/2023 Have You Recently Traveled To A [place] [address] High Risk Area Or Gathering In The Last 10 Days? No Information not available 02/17/2021 Marital Status Informatio n not available 02/23/2022 What Was The Date Of Your Most Recent Tobacco Screening? 05/31/2024 [email or web address] Information not available 05/31/2024 How Many Children Do You Have? 4 2 Daughters And 2 Sons And 10 GC Information not available 05/31/2024 Do You Use Protection During Sex? No [id number] Information not available 01/30/2020 Difficulty Reading? No Information not available 02/23/2022 What Is Your Relationship Status? Information not available 02/23/2022 Do You Use Your Seat Belt Or Car Seat Routinely? Yes [email or web address] Information not available 02/17/2021 Seat Belts Used Routinely Yes Information not available 02/23/2022 Are You Sexually Active? Yes [id number] Information not available 01/30/2020 Smoke Alarm In Home Yes Information not available 02/23/2022 Do You Have Smoke And Carbon Monoxide Detectors In Your Home? Yes [email or web address] Information not available 02/17/2021 Are You Passively Exposed To Smoke? No [email or web address] Information not available 02/17/2021 How Much Tobacco Do You Smoke? No Information not available 02/17/2021 Do You Use Sunscreen Routinely? Yes [id number] Information not available 01/30/2020 Do You Have Difficulty Walking Or Climbing Stairs? Yes Information not available 02/23/2022 Sex: Unknown Functional Status Question Answer Note LastModified by [employer] ion Details LastModified Time Do you or have you ever used any other forms of tobacco or nicotine? No Information not available 02/23/2022 What is your level of alcohol consumption? Occasional [id number] Information not available 01/30/2020 Do you or have you ever used smokeless tobacco? Never used smokeless tobacco [id number] Information not available 01/30/2020 Are you currently employed? No [id number] Information not available 01/30/2020 Difficulty driving at night? No Information not available 02/23/2022 Are you able to walk independently without assistance or assistive devices? YESWOREST Information not available 02/23/2022 Are you able to care for yourself independently? 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 No Information not available 02/23/2022 Do you or have you ever used e-cigarettes or vape? Never used electronic cigarettes Information not available 02/23/2022 What is your exercise level? Occasional Information not available 02/23/2022 Mental Status Question Answer Note LastModified by Organization D etails LastModified Time Do you have difficulty concentrating, remembering or making decisions? No Information no t available 02/23/2022 Family History Relationship Description Onset Age of this Age Resolved Age Notes LastModified by Organization Details LastModified Time Father Malignant neoplasm of lung 76 [email or web address] Not available 02/17 14:25:33 Father Asthma 25 76 [email or web address] Not availabl e 06/21/2014 09:56:08 Father Hearing loss [email or web address] Not dasia ilable 02/23/2022 09:56:24 Mother Neoplasm of ovary 82 Not available 02/23 09:56:24 Brother Hearing loss [email or web address] Not av ailable 02/23/2022 09:56:24 Brother Depressive disorder [email or web address] Not available 07/2024 10:08:05 Notes:1 brother and 1 sister ; she's the youngest Medical History Condition Response Other N Gout N Kidney Stones N Blood Diseases N Hyperthyroidism N Breast Cancer N Lung Disease N Hypothyroidism N Depression N COPD N Defects or Inherited Disease N Anesthesia Complications N Headaches/Migraines N Varicose Veins Y Anxiety Disorder N Obesity N Vision or Eye Problems N Arthritis N Head Injury/Concussion N Polyps N Infertility Y Congenital Anomalies N Acid Reflux (GERD) N Cancer N Stroke N ADHD N Endometriosis N High Cholesterol Y Liver Disease N Fibromyalgia N Kidney Disease N Heart Problems N Ear or Hearing Problems N Hospitalizations Y Thyroid Problems N GI Problems N Acne N Skin Problems N Eating Disorder N Anemia N Constipation N Bladder Problems N Mental Illness N Ovarian Cancer N Diabetes N Blood Transfusions Y Seizures/Epilepsy N Tuberculosis N AIDS/HIV N Congestive Heart Failure (CHF) N Eczema N Diverticulitis N Abuse/Domestic Violence N Asthma N Allergies N Reflux/GERD N Hepatitis N Pulmonary Embolism N Hypertension Y Osteoporosis Y Chicken Pox N Autism Spectrum Disorder (ASD) N Gynecological History Statement/Question Response If Post Menopausal, Age at Menopause 49 Date of Last Colonoscopy 04/10/2024 Most Recent Bone Density 08/02/2017 Date of Last Pap Smear 06/30/2017 Most Recent Mammogram 05/17/2024 Age at First Child 24 N Obstetrics History GPAL:G 0 P 0 0 0 0 Immunizations Vaccine Type Date Status Note Provider Name and Address Organization Details Recorded Time zoster live 02/02/20 [address] [facility] 10/23/2021 13:38:20 Influenza, split virus, quadrivalent, PF 02/02/20 15 completed Not Available [facility] 04/15/2019 02:22:02 Influenza, split virus, trivalent, preservative 03/25/20 [address] [facility] 08/12/2020 11:52:06 Influenza, split virus, trivalent, preservative 01/12/20 [address] [facility] 08/12/2020 11:52:06 Influenza, split virus, trivalent, preservative 12/18/19 [address] [facility] 08/12/2020 11:52:06 Influenza, split virus, trivalent, preservative 11/12/19 [address] [facility] 08/12/2020 11:52:06 Tdap 05/09/19 [address] [facility] 08/12/2020 11:52:06 influenza, seasonal, intradermal, preservative free 12/13/19 [address] [facility] 08/12/2020 11:52:06 Pneumococcal conjugate PCV 13 02/20/20 20 completed CINDY Redman, [facility] 10/23/2021 13:38:20 Td(adult) unspecified formulation 01/21/20 05 completed CINDY La, [facility] 05/26/2023 10:28:44 Influenza, split virus, trivalent, PF 12/22/19 14 completed Not Available [facility] 04/15/2019 02:21:56 Influenza, split virus, quadrivalent, PF 01/12/20 19 completed Not Available [facility] 04/15/2019 02:22:10 Influenza, high-dose, quadrivalent, PF 02/14/20 20 cancelled patient objection CINDY Alberto, [facility] 02/14/2020 13:53:23 Td (adult), 2 Lf tetanus toxoid, preservative free, adsorbed 02/24/20 22 completed Brian Martínez MD [address], [id number], [facility] [place] 02/25/2022 08:34:54 Past Encounters Encounter ID Performer Location Encounter Start Date Encounter Closed Date Diagnosis/Indication Diagnosis SNOMED-CT Code Diagnosis ICD10 Code Diagnosis IMO Codes Diagnosis Note [id number] Brian Martínez MD Main Office [address] [id number] 02/27/2025 15:40:44 02/27/2025 16:18:24 Low back pain 868134617 M54.50 [id number] Persistent back pain which has not responded well to current meds (NSAIDs and acetaminop hen) and PT. Will refer to pain mgmt for evaluation and a possible targeted injection. Health Concerns Section Related Observation LastModified by Organization Detai ls LastModified Time None Recorded Concern Status LastModified by Organization Details LastModified Time None Recorded Payers Encounter Date Sequence Insurance Name Policy Number Policy Mclain Covered Member ID Mclain Member ID Guarantor Name 02/27/2025 1 [facility]: MEDICARE PPO BLUE (MEDICARE REPLACEMENT PPO) [id number] Kay Spencer [id number] David Spencer Notes Date Note Type Note Provider Name and Address Organization Details Recorded Time 02/27/2025 text/html ROS as noted in the HPI She has had low back pain across her lower back w/o radiation for 4 months that seems to be getting worse. She has had low back back in the past but this hasn't been a problem since 2019. It become a problem again a few months ago and she denies any precipitating event. There is no radiation and the pain has not been helped by NSAIDs or tylenol. She finds it difficult to sleep or even to walk especially stairs and she has difficulty getting in and out of the car. She had an MRI done last week showing moderate central compression deformity of L2 associated with a superior endplate and moderate left neural foraminal narrowing at L5-S1. PT has not been helping, in fact she feels that it makes it worse. Brian Martínez MD [address], [place], [address], [facility] 02/28/2025 13:49:20 OBGyn Episode No OBEpisode recorded.
--- OUTSIDE RECORDS SUMMARY | 2025-03-21 09:15 | XMS_ITS | Data Portability ---
Author Organization [facility], Main Office Address [address] [facility] [address] [place] [address] Care Team Providers Care Speaker Wirer Name Role Phone WHIT MARTÍNEZ Primary Care Provider SEPIDEH STANLEY Continuous Pillowcase Cutter MUSA SCHNEIDER Director Park DANIA GAUTHIER Referring Provider VICKI FUNG Referring Provider Assessment Encounter Date Assessment Date Assessment LastModified by Organization Details LastModified Time 10/03/2024 10/03/2024 This service was provided using telemedicine. Patient consented to video & audio visit Patient was located at home in the [facility]. Provider was located in the office. No other persons participated in the telemedicine visit except for the patient unless otherwise indicated here. Total time of visit was 4 minutes. [email or web address] Not available 10/03/2024 15:50:02 Plan of Treatment Reminders Order Date Submit Date Provider Last Modified By Organization Details Last Modified Time Details Appointments [id number] 2025 01:45P M Whit rachel MD Not available Not available Not available Lab urinalysi s, complete 2024 025 KEVEN [facility] (Centralized Electronic Ordering - All Locations), Patient Can Go To The Location Of Their Choice, [id number] 10/06/2024 12:05:57 culture, urine 2024 025 KEV[facility] (Centralized Electronic Ordering - All Locations), Patient Can Go To The Location Of Their Choice, [id number] 10/06/2024 12:05:58 Referral pain managemen t referral - Low back pain since August 2024. Evaluate for possible cortisone injection . [facility], [address] [facility] [address], [place], [address], 03/01/2025 09:50:35 Procedures None recorded. Surgeries None recorded. Imaging None recorded. Medication Orders tramadol 50 mg tablet 2024 025 [facility]/Pharmacy #[id number], [address] [place], [address], 03/16/2025 05:01:59 Cipro 250 mg tablet 2024 025 [facility]/Pharmacy #[id number], [address] [place], [address], 10/13/2024 05:01:38 losartan 100 mg tablet 2024 025 [facility]/Pharmacy #[id number], [address] [place], [address], 09/21/2024 10:01:48 Patient TargetsNo targets recorded. Patient Instructions Encounter Date Encounter Id Patient Instructions Last Modified By Organization Details Last Modified Time 08/31/2024 [id number] I have reviewed the note and agree with the assessment and plan of care. [email or web address] Not available 09/04/2024 15:01:55 09/21/2024 [id number] At [facility] follow up visit, all current and discharge medications (OTC, herbal therapies, supplements) reviewed and reconciled with patient and or caregiver, including potential side effects, drug interactions, instructions, and the consequences of not taking medication. Reviewed potential barriers to medication adherence, such as side effects from medication or cost of medication. [email or web address] Not available 09/21/2024 09:37:48 10/03/2024 [id number] Follow up if no improvement or if symptoms worsen. [email or web address] Not available 10/03/2024 15:51:28 11/30/2024 [id number] high blood pressure: care instructions [email or web address] Not available 12/01/2024 10:06:16 learning about high blood pressure [email or web address] Not available 12/01/2024 10:06:15 high cholesterol: care instructions [email or web address] Not available 12/01/2024 10:07:41 02/27/2025 [id number] back care and preventing injuries: care instructions [email or web address] Not available 02/27/2025 16:18:53 getting back to normal after low back pain: care instructions [email or web address] Not available 02/27/2025 16:18:53 learning about relief for back pain [email or web address] Not available 02/27/2025 16:18:53 Reason for Referral Pain Management Referral for Low back pain Low back pain since August 2024. Evaluate for possible cortisone injection. Referring Physician: Whit Martínez, Family Medicine, Encounter Date: 02/27/2025 Results Created Date Observation Date Name Description Value Unit Range Abnormal Flag Note LastModifiedBy Organization Detail LastModifiedTime 10/04/1910/04/2024 URINA LYSIS , COMPL ETE specific gravity 1.008 1.005- 1.030 normal Not Available [facility] ([facility]) [address] [place], [address], 10/06/2024 12:05:57 10/04/1910/04/2024 URINA LYSIS , COMPL ETE pH 7.0 5.0-7. 5 normal Not Available [facility] ([facility]) [address] [place], [address], 10/06/2024 12:05:57 10/04/1910/04/2024 URINA LYSIS , COMPL ETE urine-color Yellow yellow Not Available [facility] ([facility]) [address] [place], [address], 10/06/2024 12:05:57 10/04/1910/04/2024 URINA LYSIS , COMPL ETE appearance Clear clear Not Available [facility] ([facility]) [address] [place], [address], 10/06/2024 12:05:57 10/04/192025 URINA LYSIS , COMPL ETE WBC esterase 2+ negati ve abnormal Not Available [facility] ([facility]) [address] [place], [address], 10/06/2024 12:05:57 10/04/19 25 10/04/2024 URINA LYSIS , COMPL ETE protein Negati ve negati ve/tra ce Not Available [facility] ([facility]) [address] [place], [address], 10/06/2024 12:05:57 10/04/19 25 10/04/2024 URINA LYSIS , COMPL ETE glucose Negati ve negati ve Not Available [facility] ([facility]) [address] [place], [address], 10/06/2024 12:05:57 10/04/19 25 10/04/2024 URINA LYSIS , COMPL ETE ketones Negati ve negati ve Not Available [facility] ([facility]) [address] [place], [address], 10/06/2024 12:05:57 10/04/19 25 10/04/2024 URINA LYSIS , COMPL ETE occult blood 2+ negati ve abnormal Not Available [facility] ([facility]) [address] [place], [address], 10/06/2024 12:05:57 10/04/19 25 10/04/2024 URINA LYSIS , COMPL ETE bilirubin Negati ve negati ve Not Available [facility] ([facility]) [address] [place], [address], 10/06/2024 12:05:57 10/04/19 25 10/04/2024 URINA LYSIS , COMPL ETE urobilinogen ,semi-qn 0.2 mg/dL 0.2-1. 0 normal Not Available [facility] ([facility]) [address] [place], [address], 10/06/2024 12:05:57 10/04/19 25 10/04/2024 URINA LYSIS , COMPL ETE nitrite, urine Negati ve negati ve Not Available [facility] ([facility]) [address] [facility], [place], [address], 10/06/2024 12:05:57 10/04/19 25 10/04/2024 URINA LYSIS , COMPL ETE microscopic examination See below: Micro scopi c was indic ated and was perfo rmed. Not Available [facility] ([facility]) [address] [facility], [place], [address], 10/06/2024 12:05:57 10/04/19 25 10/04/2024 URINA LYSIS , COMPL ETE WBC 11-30 /hpf 0 - 5 abnormal Not Available [facility] ([facility]) [address] [facility], [place], [address], 10/06/2024 12:05:57 10/04/19 25 10/04/2024 URINA LYSIS , COMPL ETE RBC 0-2 /hpf 0 - 2 Not Available [facility] ([facility]) [address] [facility], [place], [address], 10/06/2024 12:05:57 10/04/19 25 10/04/2024 URINA LYSIS , COMPL ETE epithelial cells (non renal) None seen /hpf 0 - 10 Not Available [facility] ([facility]) [address] [facility], [place], [address], 10/06/2024 12:05:57 10/04/19 25 10/04/2024 URINA LYSIS , COMPL ETE epithelial cells (renal) 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 Not Available [facility] ([facility]) [address] [place], [address], 10/06/2024 12:05:57 10/04/19 25 10/04/2024 URINA LYSIS , COMPL ETE casts None seen /lpf none seen Not Available [facility] ([facility]) [address] [facility], [place], [address], 10/06/2024 12:05:57 10/04/19 25 10/04/2024 URINA LYSIS , COMPL ETE cast type 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 Not Available [facility] ([facility]) [address] [facility], [place], [address], 10/06/2024 12:05:57 10/04/19 25 10/04/2024 URINA LYSIS , COMPL ETE crystals 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 Not Available [facility] ([facility]) [address] [facility], [place], [address], 10/06/2024 12:05:57 10/04/19 25 10/04/2024 URINA LYSIS , COMPL ETE crystal type 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 Not Available [facility] ([facility]) [address] [facility], [place], [address], 10/06/2024 12:05:57 10/04/19 25 10/04/2024 URINA LYSIS , COMPL ETE mucus threads 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 Not Available [facility] ([facility]) [address] [place], [address], 10/06/2024 12:05:57 10/04/19 25 10/04/2024 URINA LYSIS , COMPL ETE bacteria None seen none seen/f ew Not Available [facility] ([facility]) [address] [facility], [place], [address], 10/06/2024 12:05:57 10/04/19 25 10/04/2024 URINA LYSIS , COMPL ETE yeast 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 Not Available [facility] ([facility]) [address] [place], [address], 10/06/2024 12:05:57 10/04/19 25 10/04/2024 URINA LYSIS , COMPL ETE trichomonas 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 Not Available [facility] ([facility]) [address] [facility], [place], [address], 10/06/2024 12:05:57 10/04/19 25 10/04/2024 URINA LYSIS , COMPL ETE comment 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 Not Available [facility] ([facility]) [address] [facility], [place], [address], 10/06/2024 12:05:57 10/04/1910/04/2024 URINA LYSIS , COMPL ETE microscopic examination 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 Cefaz allyn with an TIARA <=16 predi cts susce ptibi lity to the oral agent s cefac candy, cefdi cely, cefpo doxim e, cefpr ozil, cefur oxime , cepha lexin , and lorac arbef when used for thera py of uncom plica kasandra urina ry tract infec tions due to E. coli, Klebs iella pneum oniae , and Prote us mirab ilis. 25,00 0-50, 000 colon y formi ng units per mL Not Available [facility] ([facility]) [address] [facility], [place], [address], 10/06/2024 12:05:58 10/04/19 25 10/06/2024 URINE CULTU RE, ROUTI NE antimicrobia l susceptibili ty Commen t S = Susce ptibl e; I = Inter media te; R = Resis tant P = Posit filipe; N = Negat filipe MICS are expre ssed in micro grams per mL Antib iotic RSLT# 1 RSLT# 2 RSLT# 3 RSLT# 4 Amoxi cilli n/Cla vulan ic Acid S Ampic illin S Cefaz allyn S Cefep reba S Cefox itin S Cefpo doxim e S Ceftr iaxon e S Cipro floxa lindsay S Ertap enem S Genta micin S Levof loxac in S Merop enem S Nitro furan toin S Piper acill in/Ta zobac purcell S Tetra cycli ne S Tobra mycin S Trime thopr im/Arana lfa S Not Available [facility] ([facility]) [address] [place], [address], 10/06/2024 12:05:58 11/29/19 25 11/28/2024 CMP14 +EGFR glucose 79 mg/dL 70-99 normal Not Available [facility] ([facility]) [address] [place], [address], 11/29/2024 06:07:39 11/29/19 25 11/28/2024 CMP14 +EGFR BUN 15 mg/dL 8-27 normal Not Available [facility] ([facility]) [address] [place], [address], 11/29/2024 06:07:39 11/29/1911/28/2024 CMP14 +EGFR creatinine 0.71 mg/dL 0.57-1 .00 normal Not Available [facility] ([facility]) [address] [place], [address], 11/29/2024 06:07:39 11/29/19 25 11/28/2024 CMP14 +EGFR eGFR 91 mL/mi n/1.7 3 >59 normal Not Available [facility] ([facility]) [address] [place], [address], 11/29/2024 06:07:39 11/29/1911/28/2024 CMP14 +EGFR BUN/creatini ne ratio 21 12-28 normal Not Available [facility] ([facility]) [address] [facility] [place], [address], 11/29/2024 06:07:39 11/29/19 25 11/28/2024 CMP14 +EGFR sodium 140 mmol/ L 134-14 4 normal Not Available [facility] ([facility]) [address] [facility] [place], [address], 11/29/2024 06:07:39 11/29/1911/28/2024 CMP14 +EGFR potassium 4.3 mmol/ L 3.5-5. 2 normal Not Available [facility] ([facility]) [address] [facility] [place], [address], 11/29/2024 06:07:39 11/29/1911/28/2024 CMP14 +EGFR chloride 103 mmol/ L 96-106 normal Not Available [facility] ([facility]) [address] [facility] [place], [address], 11/29/2024 06:07:39 11/29/19 25 11/28/2024 CMP14 +EGFR carbon dioxide, total 21 mmol/ L 20-29 normal Not Available [facility] ([facility]) [address] [place], [address], 11/29/2024 06:07:39 11/29/1911/28/2024 CMP14 +EGFR calcium 9.7 mg/dL 8.7-10 .3 normal Not Available [facility] ([facility]) [address] [place], [address], 11/29/2024 06:07:39 11/29/1911/28/2024 CMP14 +EGFR protein, total 7.0 g/dL 6.0-8. 5 normal Not Available [facility] ([facility]) [address] [place], [address], 11/29/2024 06:07:39 11/29/19 25 11/28/2024 CMP14 +EGFR albumin 4.4 g/dL 3.9-4. 9 normal Not Available [facility] ([facility]) [address] [place], [address], 11/29/2024 06:07:39 11/29/1911/28/2024 CMP14 +EGFR globulin, total 2.6 g/dL 1.5-4. 5 Not Available [facility] ([facility]) [address] [place], [address], 11/29/2024 06:07:39 11/29/19 25 11/28/2024 CMP14 +EGFR alkaline phosphatase 93 IU/L 44-121 normal Eff ectiv e Septe mber 2024 Alkal ine Phosp hatas e refer ence inter alma will be chen ing to: Age Male Femal e 0 - 5 days 47 - 127 47 - 127 6 - 10 days 29 - 242 29 - 242 11 - 20 days 109 - 357 109 - 357 21 - 30 days 94 - 494 94 - 494 1 - 2 month s 149 - 539 149 - 539 3 - 6 month s 131 - 452 131 - 452 7 - 11 month s 117 - 401 117 - 401 12 month s - 6 years 158 - 369 158 - 369 7 - 12 years 150 - 409 150 - 409 13 years 156 - 435 78 - 227 14 years 114 - 375 64 - 161 15 years 88 - 279 56 - 134 16 years 74 - 207 51 - 121 17 years 63 - 161 47 - 113 18 - 20 years 51 - 125 42 - 106 21 - 50 years 47 - 123 41 - 116 51 - 80 years 49 - 135 51 - 125 >80 years 48 - 129 48 - 129 Not Available [facility] ([facility]) [address] [facility], [place], [address], 11/29/2024 06:07:39 11/29/19 25 11/28/2024 CMP14 +EGFR AST (SGOT) 16 IU/L 0-40 normal Not Available [facility] ([facility]) [address] [place], [address], 11/29/2024 06:07:39 11/29/1911/28/2024 CMP14 +EGFR ALT (SGPT) 11 IU/L 0-32 normal Not Available [facility] ([facility]) [address] [place], [address], 11/29/2024 06:07:39 11/29/1911/29/2024 CMP14 +EGFR bilirubin, total 0.4 mg/dL 0.0-1. 2 normal Not Available [facility] ([facility]) [address] [place], [address], 11/29/2024 06:07:39 11/29/1911/28/2024 TSH+F REE T4 TSH 3.000 uIU/m L 0.450- 4.500 normal Not Available [facility] ([facility]) [address] [place], [address], 11/29/2024 06:07:39 11/29/1911/28/2024 TSH+F REE T4 T4,free(dire ct) 1.08 NG/dL 0.82-1 .77 normal Not Available [facility] ([facility]) [address] [place], [address], 11/29/2024 06:07:39 11/29/1911/28/2024 CBC WITH DIFFE RENTI AL/PL ATELE T WBC 3.3 x10e3 /uL 3.4-10 .8 below low normal Not Available [facility] ([facility]) [address] [place], [address], 11/29/2024 06:07:40 11/29/19 25 11/28/2024 CBC WITH DIFFE RENTI AL/PL ATELE T RBC 4.74 x10e6 /uL 3.77-5 .28 normal Not Available [facility] ([facility]) [address] [place], [address], 11/29/2024 06:07:40 11/29/1911/28/2024 CBC WITH DIFFE RENTI AL/PL ATELE T hemoglobin 16.0 g/dL 11.1-1 5.9 above high normal Not Available [facility] ([facility]) [address] [place], [address], 11/29/2024 06:07:40 11/29/1911/28/2024 CBC WITH DIFFE RENTI AL/PL ATELE T hematocrit 47.1 % 34.0-4 6.6 above high normal Not Available [facility] ([facility]) [address] [facility], [place], [address], 11/29/2024 06:07:40 11/29/1911/28/2024 CBC WITH DIFFE RENTI AL/PL ATELE T MCV 99 fL 79-97 above high normal Not Available [facility] ([facility]) [address] [place], [address], 11/29/2024 06:07:40 11/29/1911/28/2024 CBC WITH DIFFE RENTI AL/PL ATELE T MCH 33.8 pg 26.6-3 3.0 above high normal Not Available [facility] ([facility]) [address] [place], [address], 11/29/2024 06:07:40 11/29/1911/28/2024 CBC WITH DIFFE RENTI AL/PL ATELE T MCHC 34.0 g/dL 31.5-3 5.7 normal Not Available [facility] ([facility]) [address] [place], [address], 11/29/2024 06:07:40 11/29/19 25 11/28/2024 CBC WITH DIFFE RENTI AL/PL ATELE T RDW 12.9 % 11.7-1 5.4 Not Available [facility] ([facility]) [address] [facility], [place], [address], 11/29/2024 06:07:40 11/29/19 25 11/28/2024 CBC WITH DIFFE RENTI AL/PL ATELE T platelets 216 x10e3 /uL 150-45 0 normal Not Available [facility] ([facility]) [address] [facility], [place], [address], 11/29/2024 06:07:40 11/29/19 25 11/28/2024 CBC WITH DIFFE RENTI AL/PL ATELE T neutrophils 61 % not estab. normal Not Available [facility] ([facility]) [address] [facility], [place], [address], 11/29/2024 06:07:40 11/29/19 25 11/28/2024 CBC WITH DIFFE RENTI AL/PL ATELE T lymphs 27 % not estab. normal Not Available [facility] ([facility]) [address] [facility], [place], [address], 11/29/2024 06:07:40 11/29/19 25 11/28/2024 CBC WITH DIFFE RENTI AL/PL ATELE T monocytes 8 % not estab. normal Not Available [facility] ([facility]) [address] [facility], [place], [address], 11/29/2024 06:07:40 11/29/19 25 11/28/2024 CBC WITH DIFFE RENTI AL/PL ATELE T eos 3 % not estab. normal Not Available [facility] ([facility]) [address] [facility], [place], [address], 11/29/2024 06:07:40 11/29/19 25 11/28/2024 CBC WITH DIFFE RENTI AL/PL ATELE T basos 1 % not estab. 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 0 normal Not Available [facility] ([facility]) [address] [place], [address], 11/29/2024 06:07:40 11/29/19 25 11/28/2024 CBC WITH DIFFE RENTI AL/PL ATELE T lymphs (absolute) 0.9 x10e3 /uL 0.7-3. 1 normal Not Available [facility] ([facility]) [address] [place], [address], 11/29/2024 06:07:40 11/29/19 25 11/28/2024 CBC WITH DIFFE RENTI AL/PL ATELE T monocytes(ab solute) 0.3 x10e3 /uL 0.1-0. 9 normal Not Available [facility] ([facility]) [address] [place], [address], 11/29/2024 06:07:40 11/29/19 25 11/28/2024 CBC WITH DIFFE RENTI AL/PL ATELE T eos (absolute) 0.1 x10e3 /uL 0.0-0. 4 normal Not Available [facility] ([facility]) [address] [place], [address], 11/29/2024 06:07:40 11/29/19 25 11/28/2024 CBC WITH DIFFE RENTI AL/PL ATELE T baso (absolute) 0.0 x10e3 /uL 0.0-0. 2 normal Not Available [facility] ([facility]) [address] [facility], [place], [address], 11/29/2024 06:07:40 11/29/19 25 11/28/2024 CBC WITH DIFFE RENTI AL/PL ATELE T immature granulocytes 0 % not estab. Not Available [facility] ([facility]) [address] [facility], [place], [address], 11/29/2024 06:07:40 11/29/19 25 11/28/2024 CBC WITH DIFFE RENTI AL/PL ATELE T immature grans (abs) 0.0 x10e3 /uL 0.0-0. 1 Not Available [facility] ([facility]) [address] [facility], [place], [address], 11/29/2024 06:07:40 11/29/19 25 11/28/2024 CBC WITH DIFFE RENTI AL/PL ATELE T NRBC 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 Not Available [facility] ([facility]) [address] [facility], [place], [address], 11/29/2024 06:07:40 11/29/1911/28/2024 CBC WITH DIFFE RENTI AL/PL ATELE T hematology comments: 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 Not Available [facility] ([facility]) [address] [facility], [place], [address], 11/29/2024 06:07:40 11/29/19 25 11/28/2024 LIPID PANEL cholesterol, total 237 mg/dL 100-19 9 above high normal Not Available [facility] ([facility]) [address] [facility], [place], [address], 11/29/2024 06:07:40 11/29/19 25 11/28/2024 LIPID PANEL triglyceride s 147 mg/dL 0-149 normal Not Available [facility] ([facility]) [address] [facility], [place], [address], 11/29/2024 06:07:40 11/29/19 25 11/28/2024 LIPID PANEL HDL cholesterol 92 mg/dL >39 normal Not Available [facility] ([facility]) [address] [place], [address], 11/29/2024 06:07:40 11/29/19 25 11/28/2024 LIPID PANEL VLDL cholesterol malinda 25 mg/dL 5-40 Not Available [facility] ([facility]) [address] [place], [address], 11/29/2024 06:07:40 11/29/19 25 11/28/2024 LIPID PANEL LDL chol calc ([facility]) 120 mg/dL 0-99 above high normal Not Available [facility] ([facility]) [address] [place], [address], 11/29/2024 06:07:40 11/29/19 25 11/28/2024 LIPID PANEL LDL calc comment: 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 noah [facility] [address] [facility], [place], [address], 09/15/2024 07:54:26 12/01/19 elect rocsridhar diogr am No observ ation record ed. noah In-Office Order Internal Use Only DO Not Attach Compendium DO Not Attach Compendium, Do Not Delete/merge, [id number] 12/01/2024 08:55:51 12/16/1912/14/2024 XR, lumba r spine Lumbar spine, 3 views Reason : thorac ic back pain for months ,chron ic midlin e r o compre ssion fx COMPAR SEBASTIEN: [address] abdome n 016 FINDIN GS: There is no convin cing compre ssion fractu res on the latera l view, but the endpla chloe of T10 and T11 are poorly visual ized on the fronta l view. Modera te disc space narrow ing at L4-5. Mild disc space narrow ing and margin al spurri ng of the lower thorac ic and upper lumbar spine. There is at least modera te facet arthro edwardo at L4-5 and L5-S1. Normal alignm ent. No spondy lolysi s or spondy lolist hesis. Normal sacrum and SI joints . No acute soft tissue findin gs. IMPRES JUDITH: Increa sed degene rative disc and facet arthro edwardo. WSN: [id number] Orderi ng Physic linda: Whit King Dictat ed By: Myron Hill MD Dictat ed Date/T reba: 9:48 am Review ed By: Myron Hill MD Signed By: Myron Hill MD Signed Date/T reba: 9:48 am Transc ribed By: MOSES Transc ribed Date/T reba: 9:44 am Patichristiana t [facility] [address] [place], [address], 01/12/2025 12:11:44 01/26/2001/24/2025 MRI, lumba r spine , w/o contr ast [facility] Access ion Number : [id number] Patien t Name: Kay Spencer Record Number : [id number] Date of : 1955 Date of Exam: 2024 Referr ing Physic linda: Whit [facility] [address] [facility] [address] [place] [address] Exam: MR Lumbar Spine (C-) CPT 99833 Room Descri ption: [place] Siem Espr 1.5 MRI Lumbar Spine W/O Contra st INDICA TION: Neural cintia and neurit is, unspec ified low back pain with LE neurop athy gettin g worse over the last few months . She has tried superv ised exerci ses and has been to a neurol ogist. An xray shows atleas t modera te facet arthro edwardo at L4-5 and L4-S1. Rule out s TECHNI QUE: Multip lanar, multis equenc e MRI of the lumbar spine was perfor med withou t contra st. COMPAR SEBASTIEN: Lumbar spine MRI 2018. Lumbar spine radiog raphs 025. FINDIN GS: LOCALI ZER: No additi onal findin gs on limite d locali zer images . NUMBER ING: The study assume s 5 non-ri b-bear ing lumbar type verteb ral bodies . ALIGNM ENT, VERTEB YOLETTE, MARROW , AND DISCS: There is minima l retrol isthes is of L1 on L2 and L2 on L3. This is simila r to the exam in 2019. Alignm ent is otherw ise mainta ined. There is modera te centra l compre ssion deform ity of L2 associ ated with a large superi or endpla te Schmor l's node which is new from 2019 with marrow edema. There is also mild superi or endpla te compre ssion deform ity of L3 associ ated with a small superi or endpla te Schmor l's node with minima l edema, and mild superi or endpla te compre ssion deform ity L4 with marrow edema. These findin gs are all new from 2019. No retrop ulsion . Verteb ral body height s are preser rena at the remain ing visual ized levels . There are multil evel endpla te osteop hytes are there are Modic type I and Modic type II signal change s at L5-S1. Multip le verteb ral jovi iomas, most promin ent at T11 and T12. Diffus e disc desicc ation and multil evel loss of interv ertebr al disc height . Multil evel facet arthro edwardo. CONUS: The conus is normal in signal and contou r, with normal level of termin ation at L1. PARASP INAL TISSUE S: There is atroph y of the respiratory care instructor ior parasp inal muscul ature. . DETAIL ED FINDIN GS BY LEVEL: L1-L2: Diffus e disc bulge. Facet arthro edwardo. No signif icant canal stenos is or neural forami nal narrow ing. L2-L3: Diffus e disc bulge, ligame ntum flavum thicke elvira, and facet arthro edwardo. No signif icant canal stenos is or neural forami nal narrow ing. L3-L4: Diffus e disc bulge, ligame ntum flavum thicke elvira, and facet arthro edwardo. No signif icant canal stenos is. There is mild to modera te left and minima l right neural forami nal narrow ing, simila r to prior. . L4-L5: Diffus e disc bulge, ligame ntum flavum thicke elvira, and facet arthro edwardo. There is minima l canal stenos is. There is mild to modera te left and mild right neural forami nal narrow ing, simila r to prior. L5-S1: Diffus e disc bulge with small centra l protru judith compon ent. Facet arthro edwardo. No signif icant canal stenos is. There is modera te bilate ral neural forami nal narrow ing, increa sed from prior on the left. IMPRES JUDITH: Modera te centra l compre ssion deform ity of L2 associ ated with a superi or endpla te Schmor l's node, mild superi or endpla te compre ssion deform ity of L2 associ ated with a small superi or endpla te Schmor l's node, and mild superi or endpla te compre ssion deform ity of L4, with marrow edema which may reflec t recent time course . Correl ate for clinic al sympto ms. No retrop ulsion . Multil evel degene rative change s of the lumbar spine as above. There is increa sed modera te left neural forami nal narrow ing at L5-S1. WSN: [id number] Orderi ng Physic linda: Whit King Electr onical ly Signed By: Ct zamora [facility] ([facility]) [address], [place], [address], 01/28/2025 07:49:18 Result Notes Documentation Provider Name and Address Organization Details Recorded Time Xr, Lumbar Spine : Lumbar spine, 3 views Reason: thoracic back pain for months ,chronic midline r o compression fx COMPARISON: 12/11/[address] abdomen 07/09/2015 FINDINGS: There is no convincing compression fractures on the lateral view, but the endplates of T10 and T11 are poorly visualized on the frontal view. Moderate disc space narrowing at L4-5. Mild disc space narrowing and marginal spurring of the lower thoracic and upper lumbar spine. There is at least moderate facet arthropathy at L4-5 and L5-S1. Normal alignment. No spondylolysis or spondylolisthesis. Normal sacrum and SI joints. No acute soft tissue findings. IMPRESSION: Increased degenerative disc and facet arthropathy. WSN: [id number] Ordering Physician: Whit Martínez Dictated By: Channing Saavedra MD Dictated Date/Time: 12/15/24 9:48 am Reviewed By: Channing Saavedra MD Signed By: Channing Saavedra MD Signed Date/Time: 12/15/24 9:48 am Transcribed By: MOSES Transcribed Date/Time: 12/15/24 9:44 am Patient Class: Outpatient Whit Martínez MD [address] [place] [address], [phone], [facility] 01/12/2025 12:11:44 Mri, Lumbar Spine, W/o Contrast : [facility] Accession Number: [id number] Patient Name: Kay Spencer Date of : 1955 Date of Exam: 01-24-2025 Referring Physician: Whit Martínez [place] [id number] [address] Exam: MR Lumbar Spine (C-) CPT 81014 Room Description: [facility] Espr 1.5 MRI Lumbar Spine W/O Contrast INDICATION: Neuralgia and neuritis, unspecified low back pain with LE neuropathy getting worse over the last few months. She has tried supervised exercises and has been to a neurologist. An xray shows atleast moderate facet arthropathy at L4-5 and L4-S1. Rule out s TECHNIQUE: Multiplanar, multisequence MRI of the lumbar spine was performed without contrast. COMPARISON: Lumbar spine MRI 01/11/2019. Lumbar spine radiographs 12/14/2024. FINDINGS: LOCALIZER: No additional findings on limited localizer images. NUMBERING: The study assumes 5 [id number] lumbar type vertebral bodies. ALIGNMENT, VERTEBRAE, MARROW, AND DISCS: There is minimal retrolisthesis of L1 on L2 and L2 on L3. This is similar to the exam in 2019. Alignment is otherwise maintained. There is moderate central compression deformity of L2 associated with a large superior endplate Schmorl's node which is new from 2019 with marrow edema. There is also mild superior endplate compression deformity of L3 associated with a small superior endplate Schmorl's node with minimal edema, and mild superior endplate compression deformity L4 with marrow edema. These findings are all new from 2019. No retropulsion. Vertebral body heights are preserved at the remaining visualized levels. There are multilevel endplate osteophytes are there are Modic type I and Modic type II signal changes at L5-S1. Multiple vertebral hemangiomas, most prominent at T11 and T12. Diffuse disc desiccation and multilevel loss of intervertebral disc height. Multilevel facet arthropathy. CONUS: The conus is normal in signal and contour, with normal level of termination at L1. PARASPINAL TISSUES: There is atrophy of the posterior paraspinal musculature.. DETAILED FINDINGS BY LEVEL: L1-L2: Diffuse disc bulge. Facet arthropathy. No significant canal stenosis or neural foraminal narrowing. L2-L3: Diffuse disc bulge, ligamentum flavum thickening, and facet arthropathy. No significant canal stenosis or neural foraminal narrowing. L3-L4: Diffuse disc bulge, ligamentum flavum thickening, and facet arthropathy. No significant canal stenosis. There is mild to moderate left and minimal right neural foraminal narrowing, similar to prior.. L4-L5: Diffuse disc bulge, ligamentum flavum thickening, and facet arthropathy. There is minimal canal stenosis. There is mild to moderate left and mild right neural foraminal narrowing, similar to prior. L5-S1: Diffuse disc bulge with small central protrusion component. Facet arthropathy. No significant canal stenosis. There is moderate bilateral neural foraminal narrowing, increased from prior on the left. IMPRESSION: Moderate central compression deformity of L2 associated with a superior endplate Schmorl's node, mild superior endplate compression deformity of L2 associated with a small superior endplate Schmorl's node, and mild superior endplate compression deformity of L4, with marrow edema which may reflect recent time course. Correlate for clinical symptoms. No retropulsion. Multilevel degenerative changes of the lumbar spine as above. There is increased moderate left neural foraminal narrowing at L5-S1. WSN: [id number] Ordering Physician: Whit Martínez Electronically Signed By: Ct Martínez MD [address] [address], [place], [address], [facility] 01/28/2025 07:49:18 Problems Name Problem SNOMED Code Status Onset Date Resolution Date Notes Provider Name and Address Organization Details Recorded Time Pain of joint 59759382 Active hands Bernadette yeager [facility] 1 11:52:17 Influenz a-like illness [id number] Completed 05/16/2014 Kristy Farooq PA-C [address] [address], [place], [address] , [facility] 6 16:15:36 Venous varices 726227714 Active Bernadetteina yeager [facility] 1 11:52:17 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 Bernadette Willams shobha [facility] 1 11:52:17 Acute sinusiti s 05213336 Completed 01/10/2018 Demond yeager [facility] 8 09:32:35 Upper respirat ory infectio n 95461236 Completed 01/10/2018 Demond yeager [facility] 8 09:32:59 Left lower quadrant pain 754459347 Completed 01/10/2018 Demond yeager [facility] 8 09:32:49 Divertic ulitis 598452888 Active Bernadette yeager [facility] 1 11:52:17 Injury of foot 230050790 Completed 01/10/2018 Demond yeager [facility] 8 09:32:45 Hyperten sive disorder 41915318 Completed 08/12/2020 Removal Reason: Vicenta Martínez MD [address] [facility] [address], [place], [address] , [facility] 1 13:13:16 Peripher al venous insuffic iency 85025027 Active Bernadettejerrica Cruzina yeager [facility] 1 11:52:17 Depressi ve disorder 71241639 Completed 08/12/2020 Removal Reason: Vicenta Martínez MD [address] [facility] [address], [place], [address] , [facility] 1 13:13:38 Mixed anxiety and depressi ve disorder 989967459 Active Bernadette yeager [facility] 1 11:52:17 Hypercho lesterol emia 61856876 Completed 08/12/2020 Removal Reason: Vicenta Martínez MD [address], [place], [address] , [facility] 1 13:13:03 Anemia 213330586 Active Bernadette Willams null, [facility] 1 11:52:17 Single major depressi ve episode Active Bernadette Willams null, [facility] 1 11:52:17 Essentia l hyperten judith 66744169 Active Bernadette Willams null, [facility] 1 11:52:17 Pure hypercho lesterol emia 169897115 Completed 07/09/2016 Whit Martínez MD [address] [facility] [address], [place], [address] , [facility] 7 11:02:54 Patient status finding [id number] Completed 12/21/2013 Kristy Farooq PA-C [address] [facility] [address], [place], [address] , [facility] 6 16:15:36 Otalgia 96277346 Active Bernadette Willams null, [facility] 1 11:52:17 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 93995062 Active Bernadette Willams null, [facility] 1 11:52:17 Herpes simplex 10761256 Active in ear Bernadette Willams null, [facility] 1 11:52:17 Acute maxillar y sinusiti s 78292241 Completed 200711/02/2013 RESOLVED DATE: 07/13/19 08; IMPRESSI ON: PT C/O GI DISTRESS WITH TAKING AUGMENTI N WILL D/C AND CHANGE LAST WEEK TO AVELOX 400MG QD; RECORDED 07/13/19 08 8:07AM BY WHIT RODRIGUEZ MD, ANNOTATI ON/ADDEN DUM Kristy Farooq PA-C [address], [place], [address] , [facility] 6 16:15:36 General examinat ion of patient Completed 200711/02/2013 RECORDED 07/13/19 08 8:08AM BY WHIT RODRIGUEZ MD, ANNOTATI ON/ADDEN EMMA Farooq PA-C [address], [place], [address] , [facility] 6 16:15:36 Acute maxillar y sinusiti s 79540527 Completed 200711/03/2013 RESOLVED DATE: 07/13/19 08; IMPRESSI ON: PT C/O GI DISTRESS WITH TAKING AUGMENTI N WILL D/C AND CHANGE LAST WEEK TO AVELOX 400MG QD; RECORDED 07/13/19 08 8:07AM BY WHIT RODRIGUEZ MD, ANNOTATI ON/TRISH Farooq PA-C [address], [place], [address] , [facility] 6 16:15:36 General examinat ion of patient Completed 200711/03/2013 RECORDED 07/13/19 08 8:08AM BY WHTI RODRIGUEZ MD, ANNOTATI ON/TRISH Farooq PA-C [address], [place], [address] , [facility] 6 16:15:36 Acute maxillar y sinusiti s 09806638 Completed 200710/10/2013 RESOLVED DATE: 07/13/19 08; IMPRESSI ON: PT C/O GI DISTRESS WITH TAKING AUGMENTI N WILL D/C AND CHANGE LAST WEEK TO AVELOX 400MG QD; RECORDED 07/13/19 08 8:07AM BY WHIT RODRIGUEZ MD, ANNOTATI ON/TRISH Farooq PA-C [address], [place], [address] , [facility] 6 16:15:36 General examinat ion of patient Completed 200710/10/2013 RECORDED 07/13/19 08 8:08AM BY WHIT RODRIGUEZ MD, ANNOTATI ON/ADDEN DUM Kristy Farooq PA-C [address], [place], [address] , [facility] 6 16:15:36 Degenera tion of interver tebral disc Completed 200711/02/2013 RECORDED 01/12/20 08 11:55AM BY IESHA DAWN, CASSATI ON/ADDEN DUM Kristy Farooq PA-C [address], [place], [address] , [facility] 6 16:15:37 Fracture of sternum 57505263 Completed 200711/02/2013 RECORDED 01/12/20 08 11:55AM BY IESHA DAWN, SHILA ON/ADDEN DUM Kristy Farooq PA-C [address], [place], [address] , [facility] 6 16:15:36 Closed fracture 937823116 Completed 200711/02/2013 RECORDED 01/12/20 08 11:55AM BY IESHA DAWN, SHILA ON/ADDEN DUM Kristy Farooq PA-C [address], [place], [address] , [facility] 6 16:15:36 Palpitat ions 52963357 Completed 200711/02/2013 RECORDED 01/12/20 08 11:55AM BY SHILA WILSON ON/ADDEN DUM Kristy Farooq PA-C [address], [place], [address] , [facility] 6 16:15:36 Degenera tion of interver tebral disc Completed 200711/03/2013 RECORDED 01/12/20 08 11:55AM BY CASS WILSONATI ON/ADDEN DUM Kristy Farooq PA-C [address], [place], [address] , [facility] 6 16:15:37 Fracture of sternum 47102708 Completed 200711/03/2013 RECORDED 01/12/20 08 11:55AM BY IESHA DAWN, CASSATI ON/ADDEN DUM Kristy Farooq PA-C [address], [place], [address] , [facility] 6 16:15:36 Closed fracture 456693363 Completed 200711/03/2013 RECORDED 01/12/20 08 11:55AM BY IESHA DAWN, CASSATI ON/ADDEN DUM Kristy Farooq PA-C [address], [place], [address] , [facility] 6 16:15:36 Palpitat ions 23543144 Completed 200711/03/2013 RECORDED 01/12/20 08 11:55AM BY SHILA WILSON ON/ADDEN DUM Kristy Farooq PA-C [address], [place], [address] , [facility] 6 16:15:36 Degenera tion of interver tebral disc Completed 200710/10/2013 RECORDED 01/12/20 08 11:55AM BY CASS WILSONATI ON/ADDEN DUM Kristy Farooq PA-C [address], [place], [address] , [facility] 6 16:15:37 Fracture of sternum 37140165 Completed 200710/10/2013 RECORDED 01/12/20 08 11:55AM BY CASS WILSONATI ON/ADDEN DUM Kristy Farooq PA-C [address], [place], [address] , [facility] 6 16:15:36 Closed fracture 476560806 Completed 200710/10/2013 RECORDED 01/12/20 08 11:55AM BY CASS WILSONATI ON/ADDEN DUM Kristy Farooq PA-C [address] [facility] [address], [place], [address] , [facility] 6 16:15:36 Palpitat ions 89354925 Completed 200710/10/2013 RECORDED 01/12/20 08 11:55AM BY CASS WILSONATI ON/ADDEN DUM Kristy Farooq PA-C [address] [facility] [address], [place], [address] , [facility] 6 16:15:36 Acute bronchit is 80503424 Completed 200811/02/2013 IMPRESSI ON: COUGH WITH GREEN SPUTUM, NO SOB, NL LUNG EXAM, TREAT WITH ZPAK, PT TOLERATE D CODEINE RECENTLY THEREFOR E WOULD LIKE THE COUGH MED WITH CODEINE; RECORDED 12/18/19 09 11:28AM BY SHAKEEL VALLE MA, SHILA ON/ADDEN DUM Kristy Oseas SOFIA-C [address] [facility] [address], [place], [address] , [facility] 6 16:15:36 Dysphagi a 10599351 Completed 200811/02/2013 IMPRESSI ON: SORE THROAT , NEG QUICK STREP; RECORDED 12/18/19 09 11:28AM BY SHAKEEL VALLE MA, ANNOTBERTHA ON/ADDEN DUM Kristy Oseas PA-C [address] [facility] [address], [place], [address] , [facility] 6 16:15:36 Acute bronchit is 00016019 Completed 200811/03/2013 IMPRESSI ON: COUGH WITH GREEN SPUTUM, NO SOB, NL LUNG EXAM, TREAT WITH ZPAK, PT TOLERATE D CODEINE RECENTLY THEREFOR E WOULD LIKE THE COUGH MED WITH CODEINE; RECORDED 12/18/19 09 11:28AM BY SHAKEEL VALLE MA, ANNOTATI ON/ADDEN DUM Kristy SOFIA-C [address] [facility] [address], [place], [address] , [facility] 6 16:15:36 Dysphagi a 42017765 Completed 200811/03/2013 IMPRESSI ON: SORE THROAT , NEG QUICK STREP; RECORDED 12/18/19 09 11:28AM BY SHAKEEL VALLE MA, ANNOTATI ON/ADDEN DUM Kristy SOFIA-C [address] [facility] [address], [place], [address] , [facility] 6 16:15:36 Acute bronchit is 58650768 Completed 200810/10/2013 IMPRESSI ON: COUGH WITH GREEN SPUTUM, NO SOB, NL LUNG EXAM, TREAT WITH ZPAK, PT TOLERATE D CODEINE RECENTLY THEREFOR E WOULD LIKE THE COUGH MED WITH CODEINE; RECORDED 12/18/19 09 11:28AM BY SHAKEEL VALLE MA, ANNOTATI ON/ADDEN DUM Kristy SOFIA-C [address] [facility] [address], [place], [address] , [facility] 6 16:15:36 Dysphagi a 07428202 Completed 200810/10/2013 IMPRESSI ON: SORE THROAT , NEG QUICK STREP; RECORDED 12/18/19 09 11:28AM BY SHAKEEL VALLE MA, ANNOTATI ON/ADDEN DUM Kristy TURNERC [address] [facility] [address], [place], [address] , [facility] 6 16:15:36 Acute sinusiti s 91250339 Completed 201111/02/2013 RECORDED 11/12/19 12 10:28AM BY YASMINE PEREA MA, ANNOTATI ON/ADDEN DUM [facility] 8 09:[facility]:35 Acute asthma 169622636 Completed 201111/02/2013 RECORDED 11/12/19 12 10:28AM BY YASMINE PEREA MA, ANNOTATI ON/ADDEN DUM Kristy Farooq PA-C [address], [place], [address] , [facility] 6 16:15:36 Screenin g for malignan t neoplasm of breast Completed 201111/02/2013 RECORDED 11/12/19 12 10:28AM BY AYSMINE PEREA MA, ANNOTATI ON/ADDEN DUM Kristy Farooq PA-C [address], [place], [address] , [facility] 6 16:15:36 Screenin g for malignan t neoplasm of cervix Completed 201111/02/2013 RECORDED 11/12/19 12 10:28AM BY YASMINE PEREA MA, CASSATI ON/ADDEN DUM Kristy Farooq PA-C [address], [place], [address] , [facility] 6 16:15:36 Chest pain 03569022 Completed 201111/02/2013 RECORDED 11/12/19 12 10:31AM BY SHILA ANTHONY ON/ADDEN DUM Kristy Farooq PA-C [address], [place], [address] , [facility] 6 16:15:36 Conjunct ivitis 4764901 Completed 201111/02/2013 RECORDED 11/12/19 12 10:31AM BY SHILA ANTHONY ON/ADDEN DUM Kristy Farooq PA-C [address], [place], [address] , [facility] 6 16:15:36 Gastroes ophageal reflux disease 628721866 Completed 201111/02/2013 RECORDED 11/12/19 12 10:31AM BY SHILA ANTHONY ON/ADDEN DUM Kristy Farooq PA-C [address], [place], [address] , [facility] 6 16:15:36 Family history of malignan t neoplasm of ovary 500661663 Completed 201111/02/2013 RECORDED 11/12/19 12 10:31AM BY CASS ANTHONYATI ON/ADDEN DUM Kristy Farooq PA-C [address], [place], [address] , [facility] 6 16:15:36 Follow-u p encounte r Completed 201111/02/2013 RECORDED 11/12/19 12 10:31AM BY SHILA ANTHONY ON/ADDEN DUM Kristy Farooq PA-C [address], [place], [address] , [facility] 6 16:15:36 Disorder of bone and articula r cartilag e 493471329 Completed 201111/02/2013 RECORDED 11/12/19 12 10:31AM BY SHILA ANTHONY ON/ADDEN DUM Kristy Farooq PA-C [address] [facility] [address], [place], [address] , [facility] 6 16:15:36 Screenin g for malignan t neoplasm of colon Completed 201111/02/2013 RECORDED 11/12/19 12 10:31AM BY SHILA ANTHONY ON/ADDEN DUM Kristy Farooq PA-C [address], [place], [address] , [facility] 6 16:15:37 Acute sinusiti s 30214688 Completed 201111/03/2013 RECORDED 11/12/19 12 10:28AM BY YASMINE PEREA MA, ANNOTATI ON/ADDEN DUM Demond yeager, [facility] 8 09:32:35 Acute asthma 121155955 Completed 201111/03/2013 RECORDED 11/12/19 12 10:28AM BY YASMINE PEREA MA, ANNOTATI ON/ADDEN DUM Kristy Farooq PA-C [address], [place], [address] , [facility] 6 16:15:36 Screenin g for malignan t neoplasm of breast Completed 201111/03/2013 RECORDED 11/12/19 12 10:28AM BY YASMINE PEREA MA, ANNOTATI ON/ADDEN DUM Kristy Farooq PA-C [address], [place], [address] , [facility] 6 16:15:36 Screenin g for malignan t neoplasm of cervix Completed 201111/03/2013 RECORDED 11/12/19 12 10:28AM BY YASMINE PEREA MA, ANNOTATI ON/ADDEN DUM Kristy Farooq PA-C [address], [place], [address] , [facility] 6 16:15:37 Chest pain 06458339 Completed 201111/03/2013 RECORDED 11/12/19 12 10:31AM BY CASS ANTHONYATI ON/ADDEN DUM Kristy Farooq PA-C [address], [place], [address] , [facility] 6 16:15:36 Conjunct ivitis 2272583 Completed 201111/03/2013 RECORDED 11/12/19 12 10:31AM BY DEMOND PETERSON I, ANNOTATI ON/ADDEN DUM Kristy Farooq PA-C [address], [place], [address] , [facility] 6 16:15:36 Gastroes ophageal reflux disease 365386761 Completed 201111/03/2013 RECORDED 11/12/19 12 10:31AM BY SHILA ANTHONY ON/ADDEN DUM Kristy Farooq PA-C [address], [place], [address] , [facility] 6 16:15:36 Family history of malignan t neoplasm of ovary 588451633 Completed 201111/03/2013 RECORDED 11/12/19 12 10:31AM BY CASS ANTHONYATI ON/ADDEN DUM Kristy Farooq PA-C [address] [facility] [address], [place], [address] , [facility] 6 16:15:36 Follow-u p encounte r Completed 201111/03/2013 RECORDED 11/12/19 12 10:31AM BY SHILA ANTHONY ON/ADDEN DUM Kristy Farooq PA-C [address] [facility] [address], [place], [address] , [facility] 6 16:15:36 Disorder of bone and articula r cartilag e 448345299 Completed 201111/03/2013 RECORDED 11/12/19 12 10:31AM BY SHILA ANTHONY ON/ADDEN DUM Kristy Farooq PA-C [address] [facility] [address], [place], [address] , [facility] 6 16:15:36 Screenin g for malignan t neoplasm of colon Completed 201111/03/2013 RECORDED 11/12/19 12 10:31AM BY SHILA ANTHONY ON/ADDEN DUM Kristy Farooq PA-C [address], [place], [address] , [facility] 6 16:15:37 Acute sinusiti s 24309189 Completed 201110/10/2013 RECORDED 11/12/19 12 10:28AM BY YASMINE PEREA MA, ANNOTATI ON/ADDEN DUM Demond [facility] 8 09:32:35 Acute asthma [id number] Completed 201110/10/2013 RECORDED 11/12/19 12 10:28AM BY YASMINE PEREA MA, ANNOTATI ON/ADDEN DUM Kristy Farooq PA-C [address], [place], [address] , [facility] 6 16:15:36 Screenin g for malignan t neoplasm of breast Completed 201110/10/2013 RECORDED 11/12/19 12 10:28AM BY YASMINE PEREA MA, ANNOTATI ON/ADDEN DUM Kristy Farooq PA-C [address], [place], [address] , [facility] 6 16:15:36 Screenin g for malignan t neoplasm of cervix Completed 201110/10/2013 RECORDED 11/12/19 12 10:28AM BY YASMINE PEREA MA, ANNOTATI ON/ADDEN DUM Kristy Farooq PA-C [address], [place], [address] , [facility] 6 16:15:36 Chest pain [id number] Completed 201110/10/2013 RECORDED 11/12/19 12 10:31AM BY DEMOND PETERSON I ANNOTATI ON/ADDEN DUM Kristy Farooq PA-C [address], [place], [address] , [facility] 6 16:15:36 Conjunct ivitis [id number] Completed 201110/10/2013 RECORDED 11/12/19 12 10:31AM BY DEMOND PETERSON I ANNOTATI ON/ADDEN DUM Kristy Farooq PA-C [address], [place], [address] , [facility] 6 16:15:36 Gastroes ophageal reflux disease 440014443 Completed 201110/10/2013 RECORDED 11/12/19 12 10:31AM BY SHILA ANTHONY ON/ADDEN DUM Kristy Farooq AZ-C [address], [place], [address] , [facility] 6 16:15:36 Family history of malignan t neoplasm of ovary [id number] Completed 201110/10/2013 RECORDED 11/12/19 12 10:31AM BY SHILA ANTHONY ON/ADDEN DUM Kristy Farooq AZ-C [address] [facility] [address], [place], [address] , [facility] 6 16:15:36 Follow-u p encounte r Completed 201110/10/2013 RECORDED 11/12/19 12 10:28AM BY YASMINE PEREA MA, SHILA ON/ADDEN DUM Kristy Farooq AZ-C [address] [facility] [address], [place], [address] , [facility] 6 16:15:36 Essentia l hyperten judith 51987237 Completed 201110/10/2013 RECORDED 11/12/19 12 10:28AM BY YASMINE PEREA MA, SHILA ON/ADDEN DUM Kristy Farooq AZ-C [address] [facility] [address], [place], [address] , [facility] 6 16:15:36 Disorder of bone and articula r cartilag e 974411343 Completed 201110/10/2013 RECORDED 11/12/19 12 10:31AM BY SHILA ANTHONY ON/ADDEN DUM Kristy Farooq AZ-C [address], [place], [address] , [facility] 6 16:15:36 Screenin g for malignan t neoplasm of colon Completed 201110/10/2013 RECORDED 11/12/19 12 10:31AM BY DEMOND PETERSON I, ANNOTATI ON/ADDEN DUM Kristy SOFIA-C [address] [facility] [address], [place], [address] , [facility] 6 16:15:37 Influenz a vaccine needed [id number] 06 Completed 201211/02/2013 RECORDED 12/13/19 13 1:11PM BY DEMOND PETERSON I, OFFICE VISIT Kristy TURNERC [address] [facility] [address], [place], [address] , [facility] 6 16:15:36 Administ ration of diphther ia and tetanus vaccine Completed 201211/02/2013 RECORDED 12/13/19 13 12:59PM BY CASS ANTHONYATI ON/ADDEN DUM Kristy SOFIA-C [address] [facility] [address], [place], [address] , [facility] 6 16:15:36 Influenz a vaccine needed [id number] 06 Completed 201211/03/2013 RECORDED 12/13/19 13 1:11PM BY DEMOND PETERSON I, OFFICE VISIT Kristy Farooq PA-C [address] [facility] [address], [place], [address] , [facility] 6 16:15:36 Administ ration of diphther ia and tetanus vaccine Completed 201211/03/2013 RECORDED 12/13/19 13 12:59PM BY CASS ANTHONYATI ON/ADDEN DUM Kristy TURNERC [address] [facility] [address], [place], [address] , [facility] 6 16:15:36 Influenz a vaccine needed [id number] 06 Completed 201210/10/2013 RECORDED 12/13/19 13 1:11PM BY DEMOND PETERSON I, OFFICE VISIT Kristy Farooq PA-C [address] [facility] [address], [place], [address] , [facility] 6 16:15:36 Administ ration of diphther ia and tetanus vaccine Completed 201210/10/2013 RECORDED 12/13/19 13 12:59PM BY DEMOND PETERSON I, ANNOTATI ON/ADDEN DUM Kristy Farooq PA-C [address] [facility] [address], [place], [address] , [facility] 6 16:15:36 Pain in limb 67453448 Completed 201211/02/2013 RECORDED 01/21/20 13 9:39AM BY YASMINE PEREA MA, ANNOTATI ON/ADDEN DUM Kristy Farooq PA-C [address] [facility] [address], [place], [address] , [facility] 6 16:15:36 Adult health examinat ion Completed 201211/02/2013 RECORDED 01/21/20 13 9:39AM BY YASMINE PEREA MA, ANNOTATI ON/ADDEN DUM Kristy Farooq PA-C [address] [facility] [address], [place], [address] , [facility] 6 16:15:36 Pain in limb 84482138 Completed 201211/03/2013 RECORDED 01/21/20 13 9:39AM BY YASMINE PEREA MA, ANNOTATI ON/ADDEN DUM Kristy Farooq PA-C [address] [facility] [address], [place], [address] , [facility] 6 16:15:36 Adult health examinat ion Completed 201211/03/2013 RECORDED 01/21/20 13 9:39AM BY YASMINE PEERA MA, ANNOTATI ON/ADDEN DUM Krisyt Farooq PA-C [address] [facility] [address], [place], [address] , [facility] 6 16:15:36 Pain in limb 41842175 Completed 201210/10/2013 RECORDED 01/21/20 13 9:39AM BY YASMINE PEREA MA, CASSATI ON/EKATERINACHRISTIANA SOFIA-C [address], [place], [address] , [facility] 6 16:15:36 Adult health examinat ion Completed 201210/10/2013 RECORDED 01/21/20 13 9:39AM BY YASMINE PEREA MA, CASSATI ON/ADDCHRISTIANA DUM Kristy Farooq PA-C [address], [place], [address] , [facility] 6 16:15:36 Foot pain 06857824 Completed 201305/16/[address] Gilson TURNERC [address] [facility] [address], [place], [address] , [facility] 6 16:15:36 Herpes simplex 43041646 Completed 201311/02/2013 IMPRESSI ON: SEE LAST 2 [...] RECORDED 06/20/19 14 8:30AM BY SHILA ANTHONY ON/EKATERINACHRISTIANA SOFIA-C [address], [place], [address] , [facility] 6 16:15:36 Herpes zoster 0843007 Completed 201311/02/2013 IMPRESSI ON: GABRIELA DURANT; STILL WITH EAR PAIN BUT IMPROVIN G AND NO HEARING LOSS. SHE WILL CALL IN 2 WEEKS IF THE EAR PAIN PERSISTS OR THERE IS ANY CHANGE IN HER HEARING OR BALANCE. ; RECORDED 06/20/19 14 8:30AM BY SHILA ANTHONY ON/ADDEN [employer] PA-C [address] [facility] [address] [facility], [place], [address] , [facility] 6 16:15:36 Herpes simplex 20341660 Completed 201311/03/2013 IMPRESSI ON: SEE LAST 2 [...] RECORDED 06/20/19 14 8:30AM BY SHILA ANTHONY ON/ADDCHRISTIANA Brozengo-C [address] [address], [facility] [place], [address] , [facility] 6 16:15:36 Herpes zoster 3167859 Completed 201311/03/2013 IMPRESSI ON: GABRIELA DURANT; STILL WITH EAR PAIN BUT IMPROVIN G AND NO HEARING LOSS. SHE WILL CALL IN 2 WEEKS IF THE EAR PAIN PERSISTS OR THERE IS ANY CHANGE IN HER HEARING OR BALANCE. ; RECORDED 06/20/19 14 8:30AM BY SHILA ANTHONY ON/ADDAmbio HealthC [address] [address], [place], [address] , [facility] 6 16:15:36 Herpes simplex 44364366 Completed 201310/10/2013 IMPRESSI ON: SEE LAST 2 [...] RECORDED 06/20/19 14 8:30AM BY SHILA ANTHONY ON/ADDAmbio HealthC [address] [facility] [address], [place], [address] , [facility] 6 16:15:36 Herpes zoster 3311486 Completed 201310/10/2013 IMPRESSI ON: GABRIELA DURANT; STILL WITH EAR PAIN BUT IMPROVIN G AND NO HEARING LOSS. SHE WILL CALL IN 2 WEEKS IF THE EAR PAIN PERSISTS OR THERE IS ANY CHANGE IN HER HEARING OR BALANCE. ; RECORDED 06/20/19 14 8:30AM BY SHILA ANTHONY ON/TRISH Farooq PA-C [address], [place], [address] , [facility] 6 16:15:36 Osteopen ia 472226800 Active [address] Cindy Farooq PA-C [address], [place], [address] , [facility] 6 16:15:36 Blood in urine 62002136 Active 2015 Followed by urology Bernadette yeager [facility] 1 11:52:17 Hyperlip idemia 24377261 Active 2016 Bernadette yeager [facility] 1 11:52:17 Uterine prolapse 55982068 Active 2016 Whit Martínez MD [address] [facility] [address], [place], [address] , [facility] 7 20:06:34 Vitamin D deficien cy 69908878 Active 2016 Bernadette yeager [facility] 1 11:52:17 Urinary incontin ence 817279352 Active 2017 Bernadette yeager [facility] 1 11:52:17 Neuropat hy 165718579 Active 2018 LE; followed by neurolog yMartha yeager [facility] 1 11:52:17 Obesity 247608082 Active 2018 Bernadette Willams shobha, [facility] 1 11:52:17 Pain in left knee Active [address] [facility]; possible meniscus tear; getting an MRI.Tear on MRI. Getting another injectio n and if not helpful consider ing arthrosc opic surgery. Note from October 2022 document s good affect from injectio n which will be repeated . 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 Seen by rheum and w/u in progress . Since symptoms have resolved may not be signific ant. 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 Extensiv e w/u r/o CVA and Guillian Trivoli Involvin g CN 6 and 5. 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 Procedures Surgical History Date Name Laterality Status Provider Name and Address Organization Details Recorded Time 05/17/19 Most Recent Mammogram completed Brianda Perry [facility] 05/17/2024 11:58:51 05/17/19 Mammogram Screening completed Brianda Perry [facility] 05/17/2024 11:58:36 04/10/19 25 Date of Last Colonoscopy completed Brianda Perry [facility] 04/11/2024 13:30:00 04/10/19 25 Colonoscopy completed Ida Duncan [facility] 04/26/2024 09:46:00 05/26/19 24 Advanced Care Planning completed Whit Martínez MD [address] [facility] [address], [place], [address], [facility] 05/26/2023 12:31:56 11/04/19 23 injection of knee completed Ida Duncan [facility] 11/09/2022 11:11:52 09/23/19 23 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 completed Ida Duncan [facility] 10/02/2022 10:36:27 02/14/20 20 Six-Item Cognitive Test completed Rosa M Alexandre MA [facility] 02/14/2020 13:55:14 08/03/19 18 Most Recent Bone Density completed Bernadette Willams [facility] 08/19/2017 15:09:48 08/03/19 18 Dxa bone density jarrod vrt fx completed Bernadette Willams [facility] 08/19/2017 15:09:43 07/01/19 18 Date of Last Pap Smear completed Gisele Otero [facility] 07/06/2017 16:37:05 10/16/19 17 Total hysterectomy completed Demond Patrick [facility] 01/07/2017 09:38:13 12/28/19 15 Stab phleb veins xtr 10-20 completed Demond Patrick [facility] 02/05/2015 13:46:22 11/29/19 15 Endovenous laser 1st vein completed Demond Patrick [facility] 11/30/2014 14:41:43 06/02/19 15 Other completed Whit Martínez MD [address] [facility] [address], [place], [address], [facility] 06/08/2014 14:25:40 Tubal Ligation completed Yasmine Perea [facility] 05/16/2014 12:44:07 Orthopedic Surgery completed Whit Martínez MD [address] [facility] [address] [facility], [place], [address], [facility] 12/21/2013 09:45:22 Appendectomy completed Whit Martínez MD [address] [address], [place], [address], [facility] 12/21/2013 09:45:22 Hysterectomy completed Rosa M Alexandre MA [facility] 02/17/2021 14:26:01 Endometrial Ablation completed Yanna Desai MA [facility] 02/23/2022 09:58:31 Imaging Results None recorded. Procedure Notes None recorded. Medical Equipment None Reported. Allergies Allergen ID Allergen Name Allergen Category Reaction Reaction Severity Criticality Documentation Date Start Date Code Code System Note Provider Name and Address Organization Details Recorded Time 1400 codeine medicatio n rash Not available Not available 10/10/2013 2670 [facility] 09:58:29 76775 atorvasta tin medicatio n nausea severe Not available 06/20/2018 56445 [facility] 2 09:58:29 37892 Product containin g angiotens in-conver ting enzyme inhibitor (product) medicatio n cough Not available low 11/24/2023 59788 009 SNOMED Whit rachel MD [address] [facility] [address], [place], [address], [facility] 4 12:32:10 21064 amlodipin e medicatio n Not available Not available Not available 08/30/2024 87779 RxNorm low sodiu m and potas sium Whit rachel MD [address] [address], [place], [address], [facility] 5 17:57:38 93614 Cynara preparati on food Not available Not available Not available 02/27/20252024 22330 0 RxNorm unrec ogniz ed react ion (text : GI Intol eranc e, code: 65960 5008) (from exter nal sourc e) Not Available keven - External Data Service - prod 11:22:59 62434 spinach extract food Not available Not available Not available 02/27/20252024 71736 76 RxNorm unrec ogniz ed react ion (text : GI Intol eranc e, code: 76654 5008) (from exter nal sourc e) Not Available keven - External Data Service - prod 11:22:59 45561 Substance with sulfonami de structure and antibacte rial mechanism of action (substanc e) medicatio n hives Not available [facility] 02/27/20252024 42445 8003 SNOMED Not Available keven - External Data Service - prod 11:22:59 08596 kale extract food diarrhea Not available Not available 02/27/20252024 85001 96 RxNorm Not Available keven - External Data Service - prod 11:25:44 Medications Name Sig Start Date Stop Date Status Note LastModified by Organization Details LastModified Time celecoxib 200 mg capsule DAILY 10/05 completed RECORDED 10/16/19 07 11:05AM BY WHIT RODRIGUEZ MD, MEDICATI ON AUTO-TIMOTHY CTIVATIO N; [...] 04/09/19 12 5:33PM BY LIDA ADORNO, ANNOTATI ON/TRISH DUM; Not Available Not Available [...] 09/30 completed RECORDED 10/01/19 11 8:31AM BY WHIT RODRIGUEZ MD, ANNOTATI ON/ADDEN DUM; Not Available [...] 04/11 completed RECORDED 04/16/19 12 5:34PM BY WHIT RODRIGUEZ MD, MEDICATI ON AUTO-TIMOTHY CTIVATIO N; Not Available Not Available Not Available Vitamin C 1,000 mg tablet Take 1 tablet twice a day by oral route. active Not Available Not Available No t Available Dostinex 0.5 mg tablet ONCE A WEEK 05/23 completed RECORDED 05/23/19 10 10:20AM BY WHIT RODRIGUEZ MD, ANNOTATI ON/ADDEN DUM; Not Available Not Available Not Available gentamici n 0.3 % eye drops QID 04/08 completed RECORDED 04/09/19 12 5:33PM BY WHIT RODRIGUEZ MD, MEDICATI ON AUTO-TIMOTHY CTIVATIO N; [...] active RECORDED 08/01/19 14 6:37PM BY KIMBERLYN CHOUDHARY, ANNOTATI ON/ADDEN DUM; Not Available Not Available Not Available lorazepam 1 mg tablet active Not Available Not Available Not Available Nasonex 50 mcg/actua tion Barry QD 07/06 completed RECORDED 07/07/19 08 9:27PM [...] ROUTE DIRECTED FOR 90 DAYS, FOR HYPERTEN JUDITH 12/27 completed Not Available Not Available Not [...] 05/23 completed RECORDED 05/23/19 10 10:20AM BY WHIT RODRIGUEZ MD, ANNOTATI ON/ADDEN DUM; Not Available [...] completed RECORDED 08/01/19 14 6:37PM BY KIMBERLYN CHOUDHARY, PHONE ENCOUNTE R; Not Available Not Available Not Available omeprazol e DAILY 09/20 completed RECORDED 09/21/19 13 2:41PM BY WHIT RODRIGUEZ MD, ANNOTATI ON/ADDEN DUM; Not Available [...] height Body mass index (BMI) Body weight Oxygen saturation Heart rate Body temperature Systolic And Diastolic Provider Name and Address Organization Details Last Updated DateTime 5 165.74 cm 26.9 kg/m2 83239.2 6 g 98 % 89 /min 97.4 [degF] 133/85 mm[Hg] Duyen Dickens MA [facility] 5 09:42:01 Date Recorded Body height Provider Name an d Address Organization Details Last Updated DateTime 10/03/2024 165.74 cm Faustina Morse MA [facility] 10/03/2024 14:59:15 Date Recorded Body height Body mass index (BMI) Body weight Heart rate Oxygen saturation Body temperature Systolic And Diastolic Systolic And Diastolic Provider Name and Address Organization Details Last Updated DateTime 165.74 cm 27.1 kg/m2 54993.5 9 g 77 /min 98 % 97.9 [degF] 166/89 mm[Hg] 138/86 mm[Hg] Twila Linnqueta [facility] 5 09:40:25 Date Recorded Body height Body mass index (BMI) Body weight Heart rate Oxygen saturation Body temperature Systolic And Diastolic Systolic And Diastolic Provider Name and Address Organization Details Last Updated DateTime 165.74 cm 27.2 kg/m2 80689.7 4 g 81 /min 97 % 98 [degF] 149/83 mm[Hg] 148/80 mm[Hg] Faustina Morse MA [facility] 15:45:35 Social History Question Answer Notes LastModified by Organizat ion Details LastModified Time Tobacco Smoking Status Never Smoker Not Available [facility] 01/30/2020 03:36:36 Do You Have An Advance Directive? Yes Information not available 02/23/2022 Animal Exposure? Yes Informat ion not available 02/23/2022 Is Blood Transfusion Acceptable In An Emergency? Yes [id number] Information not available 01/30/2020 What Is Your Level Of Caffeine Consumption? Occasional [email or web address] Information not available 02/17/2021 How Much Tobacco [...] Type Of Diet Are You Following? GLUTENFREE [email or web address] Information not available 02/17/2021 Which Illicit Or Recreational Drugs Have You Used? None [id number] Information not available 01/30/2020 Legally Blind In One Or Both Eyes? No Information not available 02/23/2022 Live Alone Or With Others? With Others Information not available 02/23/2022 Do You Take Precautions To Prevent Distracted Driving? Yes [email or web address] Information not available 07/04/2015 How Often Do You Need To Have Someone Help You When You Read Instructions, Pamphlets, Or Other Written Material From Your Doctor Or Pharmacy? Never Information not available 07/04/2015 Have You Served In The ? No Information not available 01/07/2017 Have You Or Anyone In Your Household Had Any Of The Following Symptoms In The Last 14 Days: Sore Throat, Cough, Chills, Body Aches For Unknown Reasons, Shortness Of Breath For Unknown Reasons, Loss Of Smell, Loss Of Taste, Fever At Or Greater Than 100 Degrees Fahrenheit? No [email or web address] Information not available 11/17/2019 Are You Or Anyone In Your Household A Health Care Provider Or Emergency Responder? No [email or web address] Information not available 11/17/2019 To The Best Of Your Knowledge Have You Been In Close Proximity To Any Individual Who Tested Positive For COVID-19? No [email or web address] Information not available 11/17/2019 *AWV ONLY* Are You Presently Prescribed Opioid Medication By PCP Or Specialist? If YES -Provider Assess The Benefit For Other, Non-opioid Pain Therapies Instead, Even If The Patient Does Not Have OUD But Is Possibly At Risk. No [email or web address] Information not available 05/26/2023 Have You Recently Traveled To A COVID-19 High Risk Area Or Gathering In The Last 10 Days? No [email or web address] Information not available 02/17/2021 Marital Status [email or web address] Informatio n not available 02/23/2022 What Was The Date Of Your Most Recent Tobacco Screening? 05/31/2024 [email or web address] Information not available 05/31/2024 How Many Children Do You Have? 4 2 Daughters And 2 Sons And 10 GC Information not available 05/31/2024 Do You Use Protection During Sex? No [id number] Information not available 01/30/2020 Difficulty Reading? No Information not available 02/23/2022 What Is Your Relationship Status? Information not available 02/23/2022 Do You Use Your Seat Belt Or Car Seat Routinely? Yes [email or web address] Information not available 02/17/2021 Seat Belts Used Routinely Yes Information not available 02/23/2022 Are You Sexually Active? Yes [id number] Information not available 01/30/2020 Smoke Alarm In Home Yes Information not available 02/23/2022 Do You Have Smoke And Carbon Monoxide Detectors In Your Home? Yes [email or web address] Information not available 02/17/2021 Are You Passively Exposed To Smoke? No [email or web address] Information not available 02/17/2021 How Much Tobacco Do You Smoke? No Information not available 02/17/2021 Do You Use Sunscreen Routinely? Yes [id number] Information not available 01/30/2020 Do You Have Difficulty Walking Or Climbing Stairs? Yes Information not available 02/23/2022 Sex: Unknown Functional Status Question Answer Note LastModified by Organizat ion Details LastModified Time Do you or have you ever used any other forms of tobacco or nicotine? No Information not available 02/23/2022 What is your level of alcohol consumption? Occasional [id number] Information not available 01/30/2020 Do you or have you ever used smokeless tobacco? Never used smokeless tobacco [id number] Information not available 01/30/2020 Are you currently employed? No [id number] Information not available 01/30/2020 Difficulty driving at night? No Information not available 02/23/2022 Are you able to walk independently without assistance or assistive devices? [email or web address] Information not available 02/23/2022 Are you able to care for yourself independently? Yes [id number] Information not available 01/30/2020 What is your [...] Time Father Malignant neoplasm of lung 76 Not available 02/17 14:25:33 Father Asthma 25 76 [email or web address] Not availabl e 06/21/2014 09:56:08 Father Hearing loss Not dasia ilable 02/23/2022 09:56:24 Mother Neoplasm of ovary 82 [email or web address] Not available 02/23 09:56:24 Brother Hearing loss [email or web address] Not av ailable 02/23/2022 09:56:24 Brother Depressive disorder [email or web address] Not available 07/2024 10:08:05 Notes:1 brother and 1 sister ; she's the youngest Medical History Condition Response Gout N Other N Kidney Stones N Blood Diseases N Hyperthyroidism N Breast Cancer N COPD N Depression N Lung Disease N Hypothyroidism N Defects or Inherited Disease N Anesthesia Complications N Headaches/Migraines N Anxiety Disorder N Varicose Veins Y Obesity N Vision or Eye Problems N Arthritis N Head Injury/Concussion N Polyps N Infertility Y Congenital Anomalies N Acid Reflux (GERD) N Cancer N Stroke N ADHD N Endometriosis N High Cholesterol Y Liver Disease N Fibromyalgia N Kidney Disease N Heart Problems N Ear or Hearing Problems N Hospitalizations Y Thyroid Problems N GI Problems N Acne N Eating Disorder N Skin Problems N Anemia N Constipation N Bladder Problems N Mental Illness N Diabetes N Ovarian Cancer N Blood Transfusions Y Seizures/Epilepsy N Tuberculosis N AIDS/HIV N Congestive Heart Failure (CHF) N Eczema N Abuse/Domestic Violence N Diverticulitis N Asthma N Allergies N Reflux/GERD N Hepatitis N Pulmonary Embolism N Hypertension Y Chicken Pox N Autism Spectrum Disorder (ASD) N Osteoporosis Y Gynecological History Statement/Question Response If Post Menopausal, [...] Time zoster live 02/02/20 15 completed CINDY Redman, [facility] 10/23/2021 13:38:20 Influenza, split virus, quadrivalent, PF 02/02/20 15 completed Not Available [facility] 04/15/2019 02:22:02 Influenza, split virus, trivalent, preservative 03/25/20 07 completed Bernadette Willams null, [facility] 08/12/2020 11:52:06 Influenza, split virus, trivalent, preservative 01/12/20 08 completed Bernadetteina Willams null, [facility] 08/12/2020 11:52:06 Influenza, split virus, trivalent, preservative 12/18/19 09 completed Bernadette Willams null, [facility] 08/12/2020 11:52:06 Influenza, split virus, trivalent, preservative 11/12/19 12 completed Bernadette Willams null, [facility] 08/12/2020 11:52:06 Tdap 05/09/19 13 completed Bernadetteina yeager [facility] 08/12/2020 11:52:06 influenza, seasonal, intradermal, preservative free 12/13/19 13 completed Bernadette Willams shobha, [facility] 08/12/2020 11:52:06 Pneumococcal conjugate PCV 13 02/20/20 20 completed CINDY Redman, [facility] 10/23/2021 13:38:20 Td(adult) unspecified formulation 01/21/20 05 completed CINDY La, [facility] 05/26/2023 10:28:44 Influenza, split virus, trivalent, PF 12/22/19 14 completed Not Available [facility] 04/15/2019 02:21:56 Influenza, split virus, quadrivalent, PF 01/12/20 19 completed Not Available [facility] 04/15/2019 02:22:10 Influenza, high-dose, quadrivalent, PF 02/14/20 20 cancelled patient objection Rosa M Alexandre MA null, [facility] 02/14/2020 13:53:23 Td (adult), 2 Lf tetanus toxoid, preservative free, adsorbed 02/24/20 22 completed Whit Martínez MD [address], [address], [facility] 02/25/2022 08:34:54 Past Encounters Encounter ID Performer Location Encounter Start Date Encounter Closed Date Diagnosis/Indication Diagnosis SNOMED-CT Code Diagnosis ICD10 Code Diagnosis IMO Codes Diagnosis Note [id number] [facility] erce [address] [facility] [facility] [place] [address] 06/24/2006 00:00:00 [id number] autoEComm erce [address] [facility] [place] [address] 09/07/2006 00:00:00 [id number] auto[employer]Comm erce [address] [facility] [place] [address] 09/23/2006 00:00:00 [id number] auto[employer]Comm erce [address] [facility] [place] [address] 10/19/2006 00:00:00 [id number] autoEComm erce [address] [facility] [place] [address] 03/25/2007 00:00:00 [id number] auto[employer] erce [address] [facility] [place] [address] 07/07/2007 00:00:00 [id number] autoEComm erce [address] [facility] [place] [address] 07/28/2007 00:00:00 [id number] auto[employer]Comm erce [address] [facility] [place] [address] 11/10/2007 00:00:00 [id number] [address] [address] [place] [address] 01/12/2008 00:00:00 [id number] [address] [address] [place] [address] 09/06/2008 00:00:00 [id number] auto[employer] erce [address] [place] [address] 12/17/2008 00:00:00 [id number] auto[employer] er[address] [place] [address] 05/23/2009 00:00:00 [id number] auto[employer] erce [address] [place] [address] 11/21/2009 00:00:00 [id number] autoEComm erce [address] [facility] [address] [place] [address] 08/13/2010 00:00:00 [id number] autoEComm erce [address] [facility] [address] [place] [address] 04/01/2011 00:00:00 [id number] autoEComm erce [address] [facility] [address] [place] [address] 11/12/2011 00:00:00 [id number] autoEComm erce [address] [facility] [address] [place] [address] 12/12/2012 00:00:00 [id number] autoEComm erce [address] [facility] [address] [place] [address] 01/20/2013 00:00:00 [id number] auto[employer]Comm erce [address] [place] [address] 01/23/2013 00:00:00 [id number] autoEComm erce [address] [facility] [address] [place] [address] 06/19/2013 00:00:00 [id number] autoEComm erce [address] [facility] [address] [place] [address] 07/31/2013 00:00:00 [id number] Whit Martínez MD Main Office [address] [address] [place] [address] 12/21/2013 09:13:06 12/21/2013 10:03:13 Needs influenza immunization 305723790 Essential hypertension 93383743 Pure hypercholesterolemia 873815593 Pain of joint 47244642 baldomero ns in fingers, hips and knees bilaterall y and father with h/o RA [id number] MARÍA Choudhary Main Office [address] [address] [place] [address] 01/09/2014 12:46:53 01/09/2014 13:19:46 Influenza-like illness 80519024 she has hives with codeine but has tolerated oxycodone ok. she wants to try tussionex and will stop if gets a rash [id number] MARÍA Choudhary Main Office [address] [address] [place] [address] 05/16/2014 12:41:59 05/16/2014 13:19:23 Pre-surgery evaluation [id number] Kay is at low cardiopulm onary risk for this low risk surgery. NO FURTHER TESTING INDICATED Venous varices 461088211 Pure hypercholesterolemia 649668716 Bhatti's metatarsalgia 55783204 [id number] Whit Martínez MD Main Office [address] [address] [place] [address] 06/21/2014 09:17:45 06/21/2014 10:10:17 Adult health examination 456112983 Varicella vaccination 57327069 Essential hypertension 64809490 good control w/current meds Pure hypercholesterolemia 048074622 good control w/current meds [facility]clin[facility] hypothyroidism 71975372 last TSH mildly elevated at 4.25. Will recheck in 6 months. [id number] Whit Martínez MD Main Office [address] [address] [place] [address] 02/01/2015 13:24:18 02/01/2015 14:22:16 Essential hypertension 86628195 I10 good control w/current meds Needs infl uenza immunization 551474661 Z23 [id number] Whit Martínez MD Main Office [address] [place] [address] 04/25/2015 13:25:42 04/25/2015 14:12:05 Acute sinusitis 03354230 J01.90 [id number] Kristy Farooq PA-C Main Office [address] [address] [place] [address] 05/10/2015 14:54:12 05/10/2015 16:20:51 Upper respiratory infection 88616197 J06.9 Acute URI. Pt. reassured. Will start MUcinex 600 mg BID for coiugh and decongesti on. ADvised to avoid otc decongesta nts due to HTN. FLonase qd, nasal saline BID. Rest , fluids. [id number] Whit Martínez MD Main Office [address] [address] [place] [address] 07/04/2015 09:28:49 07/04/2015 10:36:35 Adult health examination 112190584 Z00.00 UTD with immunizati ons and colonoscop y Left lower quadrant pain 308056571 R10.32 possibly muscular pain from lifting but kidney stones, inguinal hernia and ovarian pathology are in the differenti al Pure hypercholesterolemia 571851400 E78.0 good control w/current meds [id number] Kristy Farooq PA-C Main Office [address] [address] [place] [address] 09/16/2015 15:24:57 09/16/2015 16:13:13 Injury of foot 279344038 S99.922A L. foot/3rd toe injury. Will order XRAy to r/o toe fracture. Body tape the toes, ice and OTC pain meds as discussed. [id number] Whit Martínez MD Main Office [address] [address] [place] [address] 01/08/2016 09:21:29 01/08/2016 10:01:20 Essential hypertension 93257165 I10 good control w/current meds Hyperlipidemia 46572305 E78.5 Stopped her statin and has been trying lifestyle changes. Will recheck lipid level. Taking Provicor. [id number] Whit Martínez MD Main Office [address] [address] [place] [address] 07/09/2016 09:58:58 07/09/2016 11:05:49 Essential hypertension 03403263 I10 good control w/current meds Hyperlipidemia 73749068 E78.5 Still running a little high but her 10-year risk is calculated at 5.4 % so we will continue to monitor off meds. [id number] Whit Martínez MD Main Office [address] [address] [place] [address] 01/07/2017 09:27:08 01/07/2017 10:14:51 Adult health examination 691395460 Z00.00 Xerostomia 00519471 R68. 2 Possibly secondary to changes since surgery Vitamin D deficiency 347 37176 E55.9 Pituitary adenoma 238579 000 D35.2 This has been stable for years. Essential hypertension 55304801 I10 good control w/current meds; BP was running low so she decreased her dose and follows her BP at home. Hyperlipidemia 07561196 E78.5 Still running a little high but her 10-year risk is calculated at 6.3 % so we will continue to monitor off meds. [id number] Whit Martínez MD Main Office [address] [address] [place] [address] 07/08/2017 10:12:49 07/08/2017 11:20:21 Essential hypertension 29392980 I10 good control w/current meds; BP was running low so she decreased her dose and follows her BP at home. Hyperlipidemia 60111943 E78.5 Unable to tolerate a statin. Working on lifestyle changes. Will recheck lipid level next appointmen t. [id number] Whit Martínez MD Main Office [address] [address] [place] [address] 01/10/2018 09:26:11 01/10/2018 10:16:51 Adult health examination 040738505 Z00.00 She is UTD with mammogram and is due for a colonoscop y by Dr Stanley Dec 2018. Advised that she get the new shingles vaccine. Essential hypertension 08583380 I10 Hyperlipidemia 09111845 E78.5 Unable to tolerate a statin. Working on lifestyle changes. Will recheck lipid level. [id number] Whit Martínez MD Main Office [address] [address] [place] [address] 04/26/2018 12:31:26 04/26/2018 13:24:17 Dysuria 73001579 R30.0 Hematuria may be secondary to kidney stones. Will send urine for a culture and will start abx. If stones will refer to urology. Essential hypertension 65788680 I10 [id number] Whit Martínez MD Main Office [address] [address] [place] [address] 06/20/2018 09:41:59 06/20/2018 10:23:51 Essential hypertension 27737873 I10 Hyperlipidemia 02483305 E78.5 Unable to tolerate a statin. Working on lifestyle changes. Will recheck lipid level. [id number] Whit Martínez MD Main Office [address] [address] [place] [address] 09/12/2018 08:48:14 09/12/2018 09:30:00 Venous varices 141733616 I86.8 Pain in le ft lower limb 522126444 M79.605 [id number] Whit Martínez MD Main Office [address] [address] [place] [address] 01/11/2019 09:24:51 01/11/2019 10:14:02 Adult health examination 967631989 Z00.00 She is UTD with mammogram and is due for a colonoscop y by Dr Stanley Dec 2018. Advised that she get the new shingles vaccine. Needs infl uenza immunization 005693322 Z23 Screening for malignant neoplasm of colon 838403517 Z12.11 [id number] Igor obando MD [facility] [address] [address] [place] [address] 11/17/2019 09:57:50 11/17/2019 11:06:05 Pain in left lower limb 125430899 M79.605 DUe to pain and swelling of leg will do US today to rule out DVT. If neg should have office vist. Elevate, heat and otc nsaid with food as needed [id number] Igor obando MD Main Office [address] [place] [address] 11/29/2019 09:42:54 11/29/2019 10:19:27 Venous stasis syndrome 669209324 I87.8 Due to sx better in am and worse as day goes on, vein surgery X 2 in this leg would possibly be related to venous stasis. Will try full length panty hose put on in the morning. Elevate led, low salt diet. Re evaluation with Dr Mena if covered by her insurance. [id number] Whit Martínez MD Main Office [address] [facility] [address] [place] [address] 02/14/2020 13:41:14 02/14/2020 14:52:30 Adult health examination 885673591 Z00.00 She is UTD with mammogram and is due for a colonoscop y by Dr Stanley Dec 2018. Advised that she get the new shingles vaccine. Influenza vaccine needed 7157921672 106 Z23 Essential hypertension 77051181 I10 BP running a little high. Will enroll her in the acc[employer]health program. Pain in left knee 175043 0478 75626 M25.562 Lateral meniscal tear. Has an appointmen t next week with Dr Rinaldi to discuss options. Injection and PT did not help. [id number] Whit Martínez MD Tele[facility] [address] [facility] [address] [place] [address] 02/26/2020 14:10:05 02/26/2020 14:55:13 Cellulitis of upper limb 866657207 L03.114 Possibly secondary to prior immunizati on at pharmacy. May also be a local reaction to the immunizati on. Essential hypertension 80659755 I10 BP running a little high. She was enrolled in the [employer] program. Will wait for pain in arm to resolve and being on higher dose of atenolol before making any changes. [id number] Whit Martínez MD Main Office [address] [facility] [address] [place] [address] 08/12/2020 10:32:10 08/12/2020 11:16:44 Essential hypertension 49205509 I10 Good control; continue current mgmt. Hyperlipidemia 31853247 E78.5 Unable to tolerate a statin. Working on lifestyle changes. Will recheck lipid level next appointmen t. [id number] Whit Martínez MD Main Office [address] [facility] [address] [place] [address] 02/17/2021 14:15:06 02/17/2021 15:07:01 Adult health examination 278357287 Z00.00 She is UTD with mammogram and is due for a colonoscop y by Dr Stanley in 2023. She does not want anymore vaccines because of a bad reaction to a pneumonia shot last year. Essential hypertension 40445034 I10 Good control; continue current mgmt. She will try holding her BP med and will follow her BP. The goal is to keep her systolic <120 for the majority of readings. Hyperlipidemia 88330896 E78.5 Unable to tolerate a statin. Working on lifestyle changes. Will recheck lipid level. [id number] Whit Martínez MD [facility] [address] [address] [place] [address] 10/23/2021 08:21:59 10/23/2021 14:18:34 Essential hypertension 26890212 I10 Good control; continue current mgmt. She will try holding her BP med and will follow her BP. The goal is to keep her systolic <120 for the majority of readings. If her BP starts going up she will restart her benazepril /HCTZ 5/6.25 mg. [id number] Whit Martínez MD Main Office [address] [address] [place] [address] 02/23/2022 09:56:08 02/23/2022 11:29:19 Adult health examination 756913235 Z00.00 She is UTD with mammogram and is due for a colonoscop y by Dr Stanley in 2023. She does not want anymore vaccines because of a bad reaction to a pneumonia shot last year. Requires a tetanus booster 702511458 Z23 Essential hypertension 39684397 I10 On meds and checks her BP at home with a systolic reported to be less than 130 and a diastolic less than 85. Hyperlipidemia 60961398 E78.5 Unable to tolerate a statin. Working on lifestyle changes. Will recheck lipid level. [facility]clin[facility] hypothyroidism 97882233 E02 last TSH mildly elevated at 4.25. [id number] Steven Costa MD [facility] [address] [facility] [address] [place] [address] 03/09/2023 08:39:52 03/09/2023 09:45:55 Urinary tract infectious disease 41673464 N39.0 pt had + uti on 2 home tests so defers formal testing will rx empiricall y c cipro cont push fluids, cont cranberry juice recommend probiotics while on abx Cough 53317066 R05.9 c/o cough x ~ 3 wksrec change to mucinex or robitussin will give abx abovealso rec prn tessalon and prn ns sprayneeds ov next week if sxs persist [id number] Whit Martínez MD Main Office [address] [facility] [address] [place] [address] 05/26/2023 10:27:34 05/26/2023 11:35:12 Adult health examination 773806211 Z00.00 She is UTD with mammogram and is due for a colonoscop y by Dr Stanley this summer. She does not want anymore vaccines because of a bad reaction to a pneumonia shot last year. Hyperlipidemia 05561252 E78.5 Unable to tolerate a statin. Working on lifestyle changes. We discussed other meds but she would like to hold off. Essential hypertension 64192839 I10 On meds and checks her BP at home with a systolic reported to be less than 130 and a diastolic generally >80. Will increase her med and she will continue to follow. Subclinica l hypothyroidism 52352634 E02 last TSH normal as well as her TPO. Advance care planning 71 7779040 Z71.89 Has an HCP and living will in place. [id number] Whit Martínez MD Main Office [address] [facility] [address] [place] [address] 11/24/2023 10:24:57 11/24/2023 10:59:33 Essential hypertension 89204920 I10 BP has been running high and she has been having a dry cough on the benazepril . Will d/c this and start another med. She will follow hr BP at home and we will call her in a few weeks to see how she is doing. She will get lab work done in 3-4 weeks. Hyperlipidemia 70700549 E78.5 Unable to tolerate a statin. Working on lifestyle changes. We discussed other meds but she would like to hold off. [id number] Whit Martínez MD Main Office [address] [address] 05/31/2024 09:13:03 05/31/2024 10:30:06 Adult health examination 830551696 Z00.00 She is UTD with mammogram done last month April 2024.She had a colonoscop y by Dr Stanley March 2024 with a 5-year call back.She does not want anymore vaccines because of a bad reaction to a pneumonia shot last year. Essential hypertension 85544852 I10 Running high. She will increase her amlodipine from5 to 10 mg. Hyperlipidemia 04125509 E78.5 Unable to tolerate a statin. Working on lifestyle changes. We discussed other meds but she would like to hold off. 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 9827219136 - improving -> no longer having weakness on the left side of upper and lower body- continues to have left sided facial drop and trouble closing her eye- completed IVIG for 5 days- pt following with neuro, has appoitment on 12/01/2024- no current need to see ID> was on short course of ceftriaxon e and valtrex- MRI brain and CT scan were normal- 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- advised patient to make a appoitment with her eye doctor- c/w patch Essential hypertension 19743470 I10 17112 - at goal- BP today is 133/85 (without medication s)- currently on losartan 100mg and amlodipine 10mg- was on losartan 100mg-HCTZ 25mg however that was stopped during hospitaliz ation due to hyponatrem ia and hypokalemi a Facial palsy 713759715 G 51.0 78064 - please see above [id number] Steven Costa MD [facility] [address] [address] 10/03/2024 14:14:11 10/03/2024 16:05:25 Urinary symptoms 784860680 R39.9 23803483 pt will give urine sample, will rx empiricall y c cipro cont push fluids, consider cranberry juice, also consider prn pyridium recommend probiotics while on abx [id number] Whit Martínez MD Main Office [address] [address] 11/30/2024 09:30:17 11/30/2024 10:31:39 Essential hypertension 62477395 I10 06916 Taking amlodipine 10 mg and losartan 100 mg. Hyperlipidemia 99454445 E78.5 Unable to tolerate a statin. Working on lifestyle changes. We discussed other meds but she would like to hold off. Her total has come down from a high of 278 to 237 putting her 10-year risk of heart disease or stroke at 13%. [facility]clinica l hypothyroidism 07550459 E02 last TSH normal as well as her TPO. No meds needed. Abducens nerve palsy 398 635958 H49.22 7147515178 Unclear etiology. Normal w/u thus far. Followed by neurology at [facility]. [id number] Whit Martínez MD Main Office [address] [address] 02/27/2025 15:40:44 02/27/2025 16:18:24 Low back pain 145657071 M54.50 99071971 Persistent back pain which has not responded well to current meds (NSAIDs and acetaminop hen) and PT. Will refer to pain mgmt for evaluation and a possible targeted injection. Health Concerns Section Related Observation LastModified by Organization Detai ls LastModified Time None Recorded Concern Status LastModified by Organization Details LastModified Time None Recorded Advance Directives Directive Y: Payers Insurance Date Sequence Insurance Name Policy Number Policy Mclain Covered Member ID Mclain Member ID Guarantor Name 02/27/2025 1 [facility] [employer] - DIRECT CONNECTORCARE TYPE II (HMO) [id number] Kay Renooie [id number] David Tj 02/27/2025 1 [facility] (MEDICARE REPLACEMENT/ADV ANTAGE - PPO) [id number] Kay Clinton Tj [id number] David Tj 02/27/2025 1 [place]MED[place]ARE [place]PLAC[place] PPO) [id number] Kay Clinton Tj [id number] David Tj 02/01/2015 1 [employer] [id number] David Tj [id number] David Tj 09/16/2015 1 [place] [id number] David Tj [id number] David Tj Notes Date Note Type Note Provider Name and Address Organization Details Recorded Time text/html Hospitalization Contact RecordReported by PatientHospitalization Contact RecordFor follow up, patient reportshospital: out of area hospital,admit date: (please enter in format 'mm/dd/yyyy') (08/29/2024),date of discharge: (please enter in format 'mm/dd/yyyy') (08/31/2024), anddate of contact: (please enter in format 'mm/dd/yyyy') (09/01/2024)([facility]).Medicare covered inpatient stay? yesMedicare CHRISTIAN with in 48 working hours? yesHigh Complexity code valid on or before:AugustModerate Complexity code valid on or before:AugustHCP on file? noMOLST on file? yesDischarge Summary available? yes09/01/24 pt already scheduled hosp f/u prior to my outreach Pt presented to [facility] as she was bending over and heard and felt a popping on her left side. Pt now c/o increased pain radiating into her chest, back and neck with left arm numbness. Has tried Motrin 800 mg with no relief. Also c/o bug bite on her arm.Troponin neg x 2, EKG x 2 possible Q waves in lead 3. No other abnormalities. ECHO pending. Accompanied by headache, neck pain, bilateral arm pain, shoulder pain with pain down back. c/o diplopia as well.X-Ray negative, CTA angio of the chest negative, MRI of brain negative, CT scan of the brain negative, CTA angio of the head and neck negative.Received Decadron 6 mg IV x 1, Celebrex 200 mg daily x 7 days possible tick born illness- tick panel pending- babesia and anaplasmosis smear is pending- out of extreme caution given doxycycline 100 mg BID start on 08/30/24 acute non intractable tension type headache- scheduled tylenol 1 g every 6 hrs-started on naproxen BID for migraine- oxycodone for myalgias and h/a primary HTN, hyponatremia, hypokalemia- continue Losartan- on admission Na was 130, K+ is 3.1- suspected to be the cause of diplopia- Na improved to 139, K+ 3.9 and Magnesium 2.0.- pt received IVF, electrolytes were repleted- d/c HCTZ secondary to electrolyte abnormalities diplopia- not resolved at this time, discussed extensively with neurology, Neuro suspects 6 nerve palsy MEDS RECONCILED Whit Martínez MD [address] [address], [place], [address], [facility] 09/04/2024 15:01:59 5 text/html Hospitalization Contact RecordReported by PatientHospitalization Contact RecordFor follow up, patient reportshospital: [facility],admit date: (please enter in format 'mm/dd/yyyy') (09/06/2024),date of discharge: (please enter in format 'mm/dd/yyyy') (09/16/2024), anddate of contact: (please enter in format 'mm/dd/yyyy') (09/21/2024).69-year-old female with PMH significant for anxiety, depression, HTN, hypercholesteremia, s/p recent hospitalization in [facility] for left eye blurry vision, left arm numbness, left 6th Nerve palsy, hyponatremia, hypokalemia (Per discharge documentation CT/CTA and MRI Brain negative. Lyme negative with remaining tick panel pending; normal CRP, elevated ESR) who presented as an acute stroke (09/06/2024) for right facial droop, L facial numbness, confusion, and word-finding difficulty. Patient additionally with unrelenting back pain over the last 2 weeks. In the ED, NIHSS: 3 facial cranial nerve palsies. CT Head nonacute. CTA Head/Neck without LVO or high grade stenosis. No gross electrolyte disturbances. L CN 6 palsy, R hemifacial paralysis with no forehead sparing and decreased blink on right. L monocular blurred and diplopia. No facial pain or decreased sensation, no post auricular pain. MRI brain with no acute or subacute findings. EMG without findings, Facial weakness moved to Left side. -CSF 09/08: (Clear/colorless, WBC 46, RBC 94, lymphs 93%, monos 4%, eos 3%, total protein 66, glucose 44) - ME panel negative, no organisms on Gram stain, Crypto neg. Exam stable and improving. EMG indicated peripheal etiology.-Hepatitis B surface antigen 09/08: Nonreactive-Hepatitis C antibody 09/08 nonreactive-HIV 09/08: Negative-Urine culture 09/06: Negative- Sed rate 19, CRP less than 0.3- HA1C : 5.2-LDL : 109, Triglycerides : 204- Vitamin B12 : 806Lyme : Negative, Tick panel negRPR : Negative, Sjogren's negFolic acid 15.1Aspergillis neg.- Anti-SSA and anti-SSB was normal-+HORACIO (likely false positive)- negative tick panel -> as a result ceftriaxone was stopped ID and neurology was following. Completed IVIG treatment for 5 days. Valtrex and Ceftriaxone was stopped. 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 Pt was admitted to [facility] on 09/06 for word finding difficulties and left sided body weakness. Today, patient presents with her . Has an appoitment with neurology on December 01. Most symptoms have improved. Continues to have double vision from left eye. Does have some fatigue and intermittent dizziness. Has been using a patch and interchanging between left and right eye. CATALINO MONTGOMERY MD [address] [facility] [address], [place], [address], [facility] 09/21/2024 10:09:28 5 text/html Phone visit- UTI, sx: urgency and burning since 10/03/2024no recent uti, but sxs feel similarpushing fluids Musa Farooq PA-C [address] [facility] [address], [place], [address], [facility] 10/03/2024 15:52:15 5 text/html Hypertension F/UReported by PatientHPIFor associated symptoms, patient reportsno dizziness,no lightheadedness,no chest pain,no shortness of breath,no palpitations,no edema, andno calf pain with exertion. For lifestyle, patient reportsregular exerciseandlimiting/avoidin g salt. For medications, patient reportstaking medications as directedandno side effects from medication. HyperlipidemiaReported by PatientHPIFor type of hyperlipidemia, patient reportshypercholesterolemia . For duration, patient reportschronic. For control, patient reportsnot at goalandunchanged. For risk factors, patient reportshypertension. For current therapy, patient reportscurrently taking: (no meds),last cholesterol level: (237),last ldl level: (120),last triglyceride level: (147), andlast hdl level: (92). For compliance, patient reportscompliant with dietandexercises. For complications, patient reportsno coronary artery disease,no peripheral artery disease, andno cardiovascular disease.ROS as noted in the HPI She has had a nerve palsy and was seen at [facility] in August where she was ruled out for a CVA or heart disease. She was treated for Lyme disease despite having a negative lab test. She was diagnosed with a 6th nerve palsy of unclear etiology and has a neurology appointment at [facility] next week. Whit Martínez MD [address] [facility] [address], [place], [address], [facility] 12/01/2024 10:19:57 5 text/html ROS as noted in the HPI [...] she feels that it makes it worse. Whit Martínez MD [address] [address], [place], [address], [facility] 02/28/2025 13:49:20 OBGyn Episode No OBEpisode recorded.
[2025-03-21 09:16] VITALS: BMI 25.5
--- NOTE | 2025-03-21 09:16 | A.PHYSOV ---
Vital Signs 03/21/25 09:16 Height 5 ft 6 in Weight 158 lb BMI 25.5 Intake Visit Reasons: NPV- eval for back injection Intake Note: Patient is a 69 year old female here for initial visit. Patient has been referred for low back pain. [employer] Required: No Allergies ASHLI Inhibitors Allergy (Unknown, Verified 03/21/25 09:17) Unknown atorvastatin Allergy (Unknown, Verified 03/21/25 09:17) Unknown codeine Allergy (Unknown, Verified 03/21/25 09:17) Unknown Sulfa (Sulfonamide Antibiotics) Allergy (Unknown, Verified 03/21/25 09:17) Unknown HPI Comments Details: History of Present Illness The patient is a 69 year old female presenting with back pain. Her symptoms began in July with the sudden onset of back pain without any preceding injury. This was followed by the onset of double vision, for which she was hospitalized and diagnosed with a cranial nerve palsy and Guillain-Momence syndrome. She was treated with IVIG, and the double vision has since resolved, but the back pain persists. The patient describes the pain as being located high in her back, not in the low back, and it radiates laterally to the sides but not down her legs. She has tried Tramadol 50 mg and ibuprofen 800 mg, but the tramadol provides no relief. She attempted physical therapy, but it was discontinued after she experienced a severe flare-up of pain. Her prior workup includes X-rays and an MRI of the lumbar spine, which reportedly showed slight osteoporosis, a slight curve, a compression fracture, and mild to moderate degenerative disc disease. She was seen by a surgeon, at [facility], who felt her back looked good for her age. Imaging of her mid and upper back has not been completed. Most of her pain radiates from the lower thoracic spine to bilateral ribs. Patient is in tears today and has failed conservative treatment. She is requesting further treatment options. I reviewed the referring provider's no prior to consultation. Pain Description - Onset: The patient has had pain since July, which started suddenly without an injury. - Location: The pain is located in the upper back, in the thoracic spine area. - Radiation: The pain radiates out to the sides. - Associated Symptoms: The patient denies leg pain or sciatica. - Severity: The pain is described as significant, and tramadol is not helpful. - Exacerbating Factors: Leaning backward worsens the pain. Results - MRI Lumbar Spine: Findings described as mild to moderate degenerative disc disease with mild to moderate narrowing, but no obvious pinched nerve or spinal cord compression. - X-ray: A previous x-ray showed slight osteoporosis and a slight curve. - X-ray of the upper back: Attempted but incomplete, with only two of three views obtained. [facility] Social History (Updated 03/21/25 @ 09:20 by Vandana Suarez MA) Alcohol intake: current Alcohol intake frequency: 0-2 drinks per day Patient Tobacco Use Status: Never used Tobacco Use of substances other than those prescribed or required for medical reasons: No Current occupational status: retired Review of Systems Narrative Review of Systems - Neurological: Reports a history of resolved double vision. - Musculoskeletal: Reports back pain since July. - General: Denies any recent injury. Physical Exam Exam Exam: Physical Exam - Back: Pain is localized to the upper thoracic region upon patient pointing. - Tenderness to palpation noted in the thoracic spine about the T10, T11 area. Pain radiates to the rib area - Pain is reproduced with lumbar extension. Full range of motion of her lumbar spine. - Forward flexion is limited. - Neurological: Lower extremity motor strength is 5/5, able to lift feet up and down and straighten leg against gravity. - Sensation to light touch is intact and symmetrical in bilateral lower extremities. - negative straight leg raise. Vital Signs: BMI result Body Mass Index 25.5 Assessment & Plan Assessment & Plan (1) Thoracic radiculopathy: Code(s): M54.14 - Radiculopathy, thoracic region Category: Medical Plan Pain Management - Affect: The patient is in significant pain. - Analgesia: The patient currently takes tramadol 50 mg and ibuprofen 800 mg for pain, but reports the tramadol is not effective. - Activities of Daily Living: Her pain has limited her activities, and she had to stop physical therapy due to a pain flare-up that left her unable to move. - Aberrant Drug Related Behaviors: The patient reports she does not have a pain contract with any provider. Plan Patient was informed and verbally consented to the use of an ambient scribe for clinic note documentation during this visit. 1. Thoracic Back Pain The patient's pain is localized to her thoracic spine with lateral radiation, which is inconsistent with her lumbar spine MRI findings. The assessment is that the etiology of her pain is higher up in the thoracic spine, and a new MRI of that area is needed for diagnosis. An X-ray of the thoracic spine will be ordered today as a prerequisite for the MRI. For pain management, gabapentin will be initiated for suspected neuropathic pain, starting at one pill three times a day, with instructions to titrate up as tolerated. Percocet will also be prescribed for breakthrough pain, to be used as needed. The long-term plan, pending MRI results, may include targeted epidural injections to treat the identified pain generator. Discussion Notes I discussed with the patient that her symptoms, particularly the high location of her back pain and its radiation pattern to the sides, do not correlate with her lumbar spine MRI. I explained that we need to investigate higher up in her spine and will therefore order an X-ray and an MRI of her thoracic spine to get a clearer picture of the problem. We discussed pain control in the interim. I recommended starting gabapentin for the radiating nerve pain, and counseled her on the potential for sleepiness and how to adjust the dose. I also offered a stronger, as-needed pain medication, Percocet, to manage severe pain until we can establish a definitive diagnosis and treatment plan. I explained that once we identify the source of the pain with the new imaging, we can consider more targeted treatments, such as an epidural injection. The patient and her family member were in agreement with this plan. Patient Instructions - Please go for an X-ray of your mid-back (thoracic spine) today. - Our office will order an MRI of your mid-back, which will be scheduled after the X-ray is complete and we receive insurance approval. - I have sent a prescription for Gabapentin to your pharmacy. - Start by taking one pill three times a day for nerve pain. - This medication can make you sleepy, so you can take more at night to help you sleep and less during the day if needed. - I have also sent a prescription for Percocet for severe pain. - Use this medication only as needed when the pain is very bad. - Please call our office for a refill of your gabapentin and let us know how you are tolerating the medication. Orders: Orders XR thoracic spine 3V Today M54.6 - Pain in thoracic spine MR thoracic spine wo con Today M54.14 - Radiculopathy, thoracic region Medications: New oxycodone-acetaminophen 5-325 mg (Percocet) Partial Fill upon patient request. 1 tab PO Q6H PRN 28 tabs 0RF pain 7 days M54.14 - Radiculopathy, thoracic region gabapentin 100 mg PO TID 90 caps 0RF 30 days M54.14 - Radiculopathy, thoracic region Coding Level of Care Code New Pt Level 4 (86388) Diagnoses Thoracic radiculopathy M54.14
== END 2025-03-21 10:12 | disposition home or self-care (01) ==
LOC: HO.HPHYS 09:11
PROVIDERS: PCP Internal Medicine; Visit Provider Physician Assistant
DX: M54.14 Radiculopathy, thoracic region (principal)
CPT/HCPCS: 99204

== ENCOUNTER → 2025-03-21 09:11 | Outpatient (BNVA) | payer MEDICARE, SELFPAY | PROVIDERS: PCP Internal Medicine; Visit Provider Physician Assistant | DX: M54.14 Radiculopathy, thoracic region (principal); R20.0 Anesthesia of skin; Z79.899 Other long term (current) drug therapy | CPT/HCPCS: 99202 ==